=== PATIENT | female | born 1975 | race Two or more races ===

== ENCOUNTER 2024-03-26 14:34 | Emergency (ER) | payer OTHER, SELFPAY ==
--- NOTE | ~2024-03-26 | XR_ITS ---
EXAMINATION: XR LUMBOSACRAL SPINE CLINICAL INFORMATION: Increasing pain after falls. COMPARISON: None available. TECHNIQUE: Three views of the lumbosacral spine. FINDINGS: There are 5 nonrib-bearing lumbar vertebrae. There is 1.3 cm of anterolisthesis of L5 in relation to S1. There appear to be L5 pars defects. There is significant degenerative disc disease at L5-S1 characterized by marked narrowing of the intervertebral disc space and endplate sclerosis. Vertebral body heights are maintained. There is facet arthropathy at L4-L5. There are surgical clips overlying the right upper quadrant. The bowel gas pattern is nonobstructive. The sacroiliac joints are maintained. XR/XR lumbar spine 2-3V IMPRESSION: There is 1.3 cm of anterolisthesis of L5 in relation to S1. There appear to be L5 pars defects. There is significant degenerative disc disease at L5-S1.
--- NOTE | ~2024-03-26 | CT_ITS ---
EXAMINATION: CT ABDOMEN AND PELVIS WITHOUT CONTRAST CLINICAL INFORMATION: Severe lower back pain. Status post fall. COMPARISON: None available. TECHNIQUE: Multidetector volumetric imaging was performed from the superior aspect of the liver through the pubic symphysis. Sagittal and coronal reformatted images were obtained on the technologist's workstation. This CT examination was performed using dose optimization techniques as appropriate, variously including the following: *Automated exposure control *Adjustment of mA and/or kV according to patient size (this includes techniques or standardized protocols for targeted exams where dose is matched to indication/reason for exam; i.e. extremities or head) *Use of iterative reconstruction technique DLP: 862 mGy-cm FINDINGS: LUNG BASES: Small hiatal hernia. LIVER, GALLBLADDER, AND BILIARY TREE: The noncontrast liver is normal in size and contour. No biliary ductal dilatation is present. The gallbladder is surgically absent. PANCREAS: No ductal dilatation. SPLEEN: Not enlarged. ADRENAL GLANDS: No adrenal mass. KIDNEYS AND URETERS: The kidneys are symmetric in size. No hydronephrosis, hydroureter, or calculi seen. No perinephric stranding. BLADDER: Unremarkable. GASTROINTESTINAL TRACT: Status post gastric bypass. No small bowel obstruction. Appendix is within normal limits. Fecal impaction in the rectosigmoid colon. ABDOMINAL WALL: No significant hernia is appreciated. LYMPH NODES: No bulky lymphadenopathy. VASCULAR: Normal caliber abdominal aorta. PELVIC VISCERA: Unremarkable. OSSEOUS STRUCTURES: L5-S1 spondylolysis and spondylolisthesis. CT/CT abdomen pelvis wo IV con IMPRESSION: L5-S1 spondylolysis and spondylolisthesis. Marked degenerative disc disease at L5-S1.
[2024-03-26 14:36] VITALS: BP 153/97; PULSE 79; RESP 18; TEMP 36.6; O2SAT 98; BMI 36.7
--- NOTE | 2024-03-26 14:39 | ED_ITS ---
HPI - General Adult General Chief complaint: General Medical Stated complaint: back pain sent in from urgent care Time Seen by Provider: 03/26/24 15:53 Source: patient Mode of arrival: ambulatory Limitations: no limitations History of Present Illness ED Provider: Saurav GANN narrative: patient is a 49-year-old female presents to for evaluation of lower back pain. She reports severe pain over the past 3 days has been prohibiting her from sleeping. Pain is primarily to the right lower back but she feels it radiate down the right lower extremity. She admits to a history of known back issues with slipped discs and a problem L5-S1 . She reports a longstanding history with this pain, she reports a few years ago she was residing in [place] in the only thing that was helping her pain at that time was getting intermittent injections to the spine as well as tramadol. She reports upon moving here she was no longer able to get the tramadol prescribed to her. She is following with Leo Stevens at [facility] and has been undergoing physical therapy, she unfortunately reports that he is unable to take her on as a pain management patient as his client load is too high. She states approximately 1 month ago she was being evaluated at [facility], and upon being discharged when leaving the wheelchair she was sitting and got caught on the threshold of the floor resulting in her falling out of the chair, the wheelchair falling onto her and subsequently her [employer] falling on top of her. She states that she had a hematoma over her lower back at that time but states that no additional images were obtained after her injury despite being brought back into the emergency department. She states that the bruising increased over the following few days who was present over the midline of her lumbar spine and off to the right. Pain has been progressively worsening since this fall. Denies fevers, chills, burning with micturition, urinary frequency/urgency/hesitancy, bladder or bowel dysfunction, numbness or tingling of the perineum. Denies any recent surgical procedures, any known immune compromising conditions, personal history of cancer, or IV drug usage. Related Data Previous Rx's ?Medication ?Instructions ?Recorded tramadol 50 mg tablet 50 mg PO Q8H PRN pain #10 tabs 03/26/24 Allergies Allergy/AdvReac Type Severity Reaction Status Date / Time cyclobenzaprine Allergy Agitated Verified 03/26/24 14:45 [From Flexeril] ibuprofen Allergy Rash Verified 03/26/24 14:45 pork derived (porcine) Allergy Unknown Verified 03/26/24 14:45 Review of Systems Review of Systems: Yes all other systems are reviewed and are negative [facility] Past Medical History Attestation statement: The following information was validated with the patient. Source: old records reviewed Social History Social History Advance Directives: No Advance Directives Information Provided: No Do you have a plan to hurt others: No Plan Physical Exam ED Vital Signs: Vital Signs - 24 hr 03/26/24 14:36 Temperature 97.9 F Pulse Rate 79 Respiratory Rate 18 Blood Pressure 153/97 H Pulse Oximetry 98 Oxygen Delivery Method Room Air BMI result Body Mass Index 36.7 Appearance: Alert.?Oriented to person, place and time. No acute distress.?Normal affect. Eyes: Pupils equal, round and reactive to light.? ENT: Pharynx normal.?? Neck: Normal inspection.? Neck supple.?? CVS: Heart sounds normal. Normal heart rate and rhythm.? Pulses normal; bilateral radial pulses 2+, bilateral posterior tibial/dorsalis pedis pulses 2+.? Respiratory: No respiratory distress.? Lung sounds clear to auscultation bilaterally?? Abdomen: Soft and non-tender. Normoactive bowel sounds. No pulsatile mass.?? Skin: Skin warm and dry.? Normal skin color.? Normal skin turgor.?? Extremities: No lower extremity edema.? No calf ttp? Back: Moderate rightparaspinal muscular tenderness from lumbar region to coccyx. No midline spinal tenderness, step-off's, or deformity. Full ROM intact in bilateral lower extremities. Straight leg test positive on right; Straight leg test positive on left. No rashes, lesions, areas of induration or fluctuance, or signs of infection noted., Neuro: Moves all extremities spontaneously. 5/5 strength in hip extension/fl exion, abduction, adduction. Sensation to light touch intact bilaterally. Patellar and Achilles reflex 2+ bilaterally. No ataxia, gait normal and steady.. No focal neuro deficits. Course Course Course Narrative: RME performed by Sabiha Reyes PA-C. Patient is a 49 year old assigned female at presenting to the emergency department with low back pain. Patient states she has a lot of chronic pain issues and her low back is currently bothering her the most. Detailed physical exam and review of systems are deferred to the outreach clinician. Patient placed back in the waiting room pending room availability. Medications Administered Discontinued Medications Generic Name Dose Route Start Last Admin Trade Name Usha PRN Reason Stop Dose Admin Tramadol HCl 50 mg 03/26/24 17:04 03/26/24 17:18 Tramadol Hcl 50 Mg Tablet PO 03/26/24 17:05 50 mg ONCE ONE Administration Medical Decision Making Medical Decision Making MDM Narrative: Patient is a 49-year-old female with acute on chronic lower back pain as per HPI; she has known degenerative disc disease of L5-S1. CT for abdomen pelvis was obtained today and is without additional acute pathology to suggest a cause for her worsening pain. On review of ADDICTION MEDICINE PHYSICIAN she most recently received a prescription oxycodone 7 day course from her prison psychiatrist. We had an at length discussion about further follow-up for her chronic pain, she was provided with contact information for the neuro spinal surgeon; Dr. Jackson associated with [facility] in addition provided with contact information for the pain management clinic associated with our hospital. She verbalizes understanding that she will contact her insurance company to assure whether providers are in network and she will make calls accordingly and seek referral from her primary care doctor and/or prison psychiatrist if so required by them. She received tramadol in the emergency department with good effect. On neurological exam there are no deficits. Not consistent with spinal fracture, spinal infection, epidural abscess, AAA, epidural abscess, or dissection. No high risk past medical history including incontinence, fever, immunosuppression, recent surgery or lumbar puncture, coagulopathy, significant trauma, recent unintentional weight loss, pulsatile mass, history of cancer, history of TB, history of IV drug use. Not consistent with ectopic , pyelonephritis, urinary tract infection, renal calculi, pelvic infection, appendicitis, diverticulitis. On exam no concern for cauda equina syndrome. Discussed with patient plan of care for discharge home, will send a short course of tramadol to her pharmacy as this has been reveal any alleviating factors for her, but we discussed the inability to prescribe long-term/continuous told substances from the emergency room setting, and patient agreed with plan. Differential Diagnosis Differential Diagnoses: The differential diagnosis associated with the presentation includes ( see narrative above) Admission/Observation Consideration of admission/observation: Escalation of care including admission/observation considered ( see narrative above) Radiology Impression Discussion of test interpretation with radiology: I have reviewed the radiologist's reading. Radiologist Impression: XR/XR lumbar spine 2-3V IMPRESSION: There is 1.3 cm of anterolisthesis of L5 in relation to S1. There appear to be L5 pars defects. There is significant degenerative disc disease at L5-S1. CT/CT abdomen pelvis wo IV con IMPRESSION: L5-S1 spondylolysis and spondylolisthesis. Marked degenerative disc disease at L5-S1. Independent Historian Clinical information obtained from an independent historian. History obtained from or confirmed by: Other ( dentures lab technician) External Record Review External record reviewed: Other ( ADDICTION MEDICINE PHYSICIAN) Tests considered The following testing was considered but not selected: no indication for emergent MRI, see narrative above Prescription Management I considered prescription management with: Pain Medication Discharge Plan Discharge Clinical Impression: Lumbar spondylosis, Degenerative disc disease, lumbar Patient Disposition: Home, Self-Care Instructions: Degenerative Disc Disease (ED), Lower Back Exercises (ED) Prescriptions: New tramadol 50 mg tablet 50 mg PO Q8H PRN (Reason: pain) Qty: 10 0RF Referrals: [facility] Pain Management [Provider Group] Maria Fernanda Padron PA-C [Primary Care Provider] - Jordan Gonzalez MD, PhD [Physician] - Print Language: Chinese
[2024-03-26] MEDS: traMADoL HCL 50 MG TABLET PO (17:18)
--- NOTE | 2024-03-26 18:05 | PC.NURSE ---
Evaluated by provider, cleared for dc home.
[2024-03-26 18:11] VITALS: BP 154/58; PULSE 51; RESP 18; TEMP 36.6; O2SAT 100
[2024-03-26 18:17] VITALS: BP 154/58; PULSE 51; RESP 18; TEMP 36.6; O2SAT 100
== END 2024-03-26 18:18 | disposition home or self-care (01) ==
PROVIDERS: Emergency Provider Emergency Medicine; PCP Physician Assistant Medical
DX: M47.816 Spondylosis without myelopathy or radiculopathy, lumbar region (principal); M51.36 Other intervertebral disc degeneration, lumbar region
CPT/HCPCS: 72100; 74176; 99283

== ENCOUNTER 2024-04-08 13:21 | Outpatient (AMB) | payer OTHER, SELFPAY ==
--- NOTE | 2024-04-08 13:57 | A.SPINEOV_ITS ---
Intake Visit Reasons: Low back pain Intake Note: Ms. Olivier, 49 y/o female, here today c/o low back and neck pain. Analysis Internship Required: No Allergies cyclobenzaprine [From Flexeril] Allergy (Verified 03/26/24 14:45) Agitated ibuprofen Allergy (Verified 03/26/24 14:45) Rash pork derived (porcine) Allergy (Verified 03/26/24 14:45) Unknown Assessment & Plan Assessment & Plan (1) Back pain: Code(s): M54.9 - Dorsalgia, unspecified Category: Medical Plan Dear Dr Padron, I saw Mrs Olivier in follow-up from the emergency room. As you know, she is a 49-year-old HIV-positive patient, who was in the [facility] emergency room complaining of back pain and right leg pain and underwent a CT scan showing severe disc collapse at L5-S1 with bilateral pars defects and foraminal narrowing. She has had chronic back issues for years. She used to live in [place] and was managed they are relatively well with injections and therapy. She has been seeing Dr. Stevens here in [place] and he has been doing injections for her but has not been doing medications with her. The injections have not had the long-lasting effect that the ones that were done in [place] seemed to have. She tells me that the symptoms have been getting progressively worse. She her days are filled with pain and she is also unable to sleep. The worst position is standing or walking. She has been using a walker to help her with mobilizing. The pain is located in the center of her back and radiates into her right buttock can go down to her posterior thigh. Right now she is taking heavy doses of Tylenol. She can not take ibuprofen because it causes some type of hypervascular response in her extremities. She has not taking any narcotics. She will take diclofenac gel which was prescribed to her. She had a CT scan in the emergency room in his here in follow-up today. PMH: HIV-positive, she tells me she got this from a tattoo and it has been managed very well with the medication called Triumeq. Her counts are undetectable. 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 History of gastric bypass in 1997, , cholecystectomy, breast reduction and excess skin removal after her weight loss surgery. Also history of anxiety and PTSD. Social hx: She has not smoke cigarettes but she does smoke marijuana every evening. No alcohol to report. Medications: Oxcarbazepine, trazodone, pantoprazole, loperamide, Klonopin, albuterol, biotin, multivitamin, Triumeq, diclofenac gel and Tylenol Allergies: Ibuprofen and Flexeril Physical exam: She is awake alert oriented no acute distress, she is uncomfortable with standing, strength and reflexes grossly intact. Imaging review: There is an abdominal CT done at [facility] showing bilateral pars defects at L5 with bilateral neuroforaminal stenosis and a grade 1-2 spondylolisthesis. Impression: 49-year-old HIV-positive female chronic low back pain and right lower extremity radiculopathy in the setting of pars defects, at L5 with spondylolisthesis grade 1-2 in bilateral neuroforaminal stenosis. The is someone who typically would be a good candidate for surgery. I would need an MRI however to clarify her anatomical structures better. The surgery of choice would typically be an anterior lumbar interbody fusion, but with her history of bypass which I suspect was a Marc-en-Y bypass, I am not sure if she would qualify. I would have to run it by our general surgeon who does are abdominal exposure to see if this would rule her out for that. Once I have her MRI images I will review them with him. The other alternative obviously would be a transforaminal lumbar interbody or a trans Kambin. I will see her back after the MRI is completed. Right now I do not get the sense that she is ready to undergo surgery, but at least we can see her back and have a more detailed discussion once we have the imaging completed. Thank you for allowing us to care for your patient. The total time spent with this visit with this patient was 45 minutes reviewing history, physical exam, lumbar CT imaging review, and implementation of armando atment plan or further diagnostic testing Onofre Gonzalez MD,PhD [facility] Orders: Orders MR lumbar spine wo con Today M54.9 - Dorsalgia, unspecified Coding Level of Care Code New Pt Level 4 (60862) Diagnoses Back pain M54.9
== END 2024-04-08 14:29 | disposition home or self-care (01) ==
PROVIDERS: PCP Physician Assistant Medical; Visit Provider Physician Assistant
DX: M54.9 Dorsalgia, unspecified (principal)
CPT/HCPCS: 99204

== ENCOUNTER → 2024-04-08 13:21 | Outpatient (BNVA) | payer OTHER, SELFPAY | PROVIDERS: PCP Physician Assistant Medical; Visit Provider Physician Assistant | DX: M54.9 Dorsalgia, unspecified (principal) | CPT/HCPCS: 99202 ==

== ENCOUNTER 2024-06-09 10:27 | Outpatient (REF) | payer OTHER, SELFPAY ==
--- NOTE | ~2024-06-09 | MR_ITS ---
EXAMINATION: MR LUMBAR SPINE WITHOUT CONTRAST CLINICAL INFORMATION: Back pain, right leg pain COMPARISON: CT abdomen and pelvis 03/26/2024 TECHNIQUE: MRI of the lumbar spine was obtained using routine sequences without contrast. FINDINGS: Grade 2 anterolisthesis of L5 on S1 measuring approximately 1.5 cm. Associated L5 pars defects are better demonstrated on preceding CT of the abdomen and pelvis. No suspicious marrow signal or focal osseous lesion. Mixed type I and type II endplate marrow signal changes at L5-S1. There is chronic appearing height loss involving the posterior aspect of the L5 vertebral body. Severe disc signal and height loss at L5-S1 and partial disc signal loss with mild posterior height loss at L4-L5 . The conus medullaris terminates at the level of L1. The distal spinal cord is normal in appearance. The cauda equina nerve roots appear normal. No significant abnormalities of the paraspinal musculature. Limited evaluation of the intra-abdominal structures without significant abnormalities. The abdominal aorta is of normal contour and caliber. SPINAL LEVELS: L1-L2: No significant spinal canal or neuroforaminal narrowing. L2-L3: Shallow disc bulge. Mild bilateral neural foraminal narrowing. No significant central spinal canal stenosis. L3-L4: Shallow disc bulge mild facet arthropathy. Mild bilateral neural foraminal narrowing. No significant central spinal canal stenosis. L4-L5: Shallow disc bulge with superimposed central protrusion with annular fissure. Facet arthropathy. No significant central spinal canal stenosis. Mild bilateral neural foraminal narrowing. L5-S1: Anterolisthesis with posterior disc and covering. Facet arthropathy. No significant central spinal canal stenosis. Severe bilateral neuroforaminal narrowing with impingement of the exiting L5 nerve roots. MR/MR lumbar spine wo con IMPRESSION: 1. Grade 2 anterolisthesis of L5 on S1 with associated L5 pars defects and severe bilateral neural foraminal narrowing with impingement of the exiting L5 nerve roots. 2. Additional mild degenerative changes of the lumbar spine as described above. Electronically signed by: Blane Casanova MD 06/23/2024 06:36 PM EDT RP
== END 2024-06-09 10:28 | disposition home or self-care (01) ==
LOC: HO.MRI 10:27
PROVIDERS: PCP Internal Medicine; Visit Provider Physician Assistant
DX: M54.9 Dorsalgia, unspecified (principal)
CPT/HCPCS: 72148

== ENCOUNTER 2025-07-29 14:21 | Inpatient (IN) | payer OTHER, SELFPAY ==
--- NOTE | ~2025-07-29 | CT_ITS ---
CLINICAL HISTORY: US with abscess of umbilicus CT abdomen and pelvis with contrast Comparison: US - US ABDOMEN LIMITED - 07/29/25 17:[address]/FL/SR - CT ABDOMEN PELVIS WITHOUT IV CONTRAST - 03/26/24 16:08 EDT Findings: The lung bases are clear. Unremarkable abdominal organs. Prior cholecystectomy. No bowel obstruction, pneumoperitoneum, or pneumatosis. There is infiltration of the soft tissues within the retro umbilical region associated with a small pocket of fluid. Mild edema of adjacent subcutaneous tissues in relative thickening of the overlying skin surface is noted. A pocket of fluid was also noted on the prior CT, however the associated inflammation is new. No umbilical hernia. Status post gastric bypass. No colitis or bowel obstruction. Pelvic contents unremarkable. Normal appendix. There are chronic bilateral pars defects at L5 associated with grade 2 spondylolisthesis without change. No acute fracture. IMPRESSION: There is an inflammatory process within the retro umbilical region likely associated with a small abscess as noted on recent ultrasound. This document has been electronically signed by: Cathryn Sosa MD on 07/29/2025 19:33:44
--- NOTE | ~2025-07-29 | US_ITS ---
CLINICAL HISTORY: soft tissue of umbilicus; UMBILICAL INFECTION ?ABSCESS --- Additional Notes or Special Instructions: investigate if fluid collection vs only cellulitis of navel Ultrasound umbilical soft tissues Comparison: 03/26/2024 Findings: Ultrasound evaluation was performed of the soft tissues in the umbilical region. Evaluation is mildly limited by artifact. There is a 3.6 x 1.5 x 2.3 cm complex fluid collection within the retro umbilical region. No obvious hernia. Adjacent soft tissues are unremarkable. Impression: 1. 3.6 cm complex fluid collection within the retro umbilical region, suspicious for an abscess. This document has been electronically signed by: Cathryn Sosa MD on 07/29/2025 17:57:52
[2025-07-29 14:29] VITALS: BP 114/79; PULSE 75; RESP 16; TEMP 36.3; O2SAT 99; BMI 35.0
--- NOTE | 2025-07-29 14:29 | ED_ITS ---
HPI - General Adult General Chief complaint: Skin/Abscess/Foreign Body Stated complaint: Belly Button Infection Sent by Time Seen by Provider: 07/29/25 16:33 Source: patient, EMS, RN notes reviewed and old records reviewed Mode of arrival: ambulatory Limitations: no limitations History of Present Illness ED Provider: Dania Lujan PA-C HPI narrative: Patient reports to the emergency department today for evaluation of soft tissue skin concern. Patient's past medical history significant for gastric sleeve surgery along with Plastic surgery to remove her skin folds of both her upper arms as well as her pannus this was done in 1997 and 2000 respectively via [facility]. Part of her pannus being reconstructed included an artificial knee able being made. Patient self reports OCD as far as skin cleansed and goes though she tries to avoid scrubbing certain areas including her umbilicus. This past Friday she decided to clean her nevus with a Q-tip O2 herself really hard and felt instant pain there was no blood on the Q-tip but the next day on Friday 3 days ago she started to notice some redness and discharge from the area facet time it has increased redness and now has pain at that site. She also states that is now an odor there. This has not happened to her before. She is patient is endorsing just feeling like something is off now. She has no trouble moving her bowels and does not endorse any fevers or chills. No other trauma. Number shave infections in this area in the past. She went to today and they referred her here. She rec'd RME and had area of infection outlined with wound marker. Related Data Previous Rx's ?Medication ?Instructions ?Recorded tramadol 50 mg tablet 50 mg PO Q8H PRN pain #10 ta bs 03/26/24 Allergies Allergy/AdvReac Type Severity Reaction Status Date / Time cyclobenzaprine (From Allergy Agitated Verified 07/29/25 14:34 Flexeril) ibuprofen Allergy Rash Verified 07/29/25 14:34 pork derived (porcine) Allergy Unknown Verified 07/29/25 14:34 Review of Systems 2 Review of Systems: Yes all other systems are reviewed and are negative PMFSH Past Medical History Attestation statement: The following information was validated with the patient. Source: old records reviewed and nursing notes reviewed Medical History (Updated 07/29/25 @ 20:27 by Dania Lujan PA-C) Cellulitis Anxiety HIV (human immunodeficiency virus infection) Social History Social History Smoked in Last 30 Days: Yes Use of substances other than those prescribed or required for medical reasons: Yes Substance Use Type: Marijuana Advance Directives: No Advance Directives Information Provided: No Do you have a plan to hurt others: No Plan Patient : No Physical Exam ED Exam Exam: erythema as above, flat poorly demarcated borders, firm induration 12 oclock position just above artificial navel of approx cm, ttp, no fluctuance, no red streaking, no hole in umbilicus, foul odor present, pseudomonal like, no gaurding General: Appears in no acute distress, appears well nourished body habitus is obese, appears stated age. No septic or ill-appearing. Vitals reviewed normal, PMH/Social and Surgical hx reviewed including allergies and current medications. Head: Normocephalic, no obvious trauma or skin lesions noted. Eyes: EOMI ENMT: moist oral mucosa Neck: trachea midline Cardiovascular: peripheral perfusion normal, Regular heart rate, regular rhythm Respiratory: no respiratory distress Abdomen: as above, obese Extremities: warm and moving without difficulty Psych: Cooperative and anxious Neuro: Alert and oriented. Vital Signs: Vital Signs - 24 hr 07/29/25 14:29 07/29/25 16:40 Temperature 97.3 F 98.3 F Pulse Rate 75 81 Respiratory Rate 16 12 Blood Pressure 114/79 102/51 L Pulse Oximetry 99 99 Oxygen Delivery Method Room Air Room Air BMI result Body Mass Index 35.0 Course Course Course Narrative: This is a Rapid Medical Examination (RME) performed by Valerie Camarena PA-C in triage. Full HPI, ROS, assessment and treatment plan per primary provider in the Main ED. Hx: 50 yo F hx HIV w/ undetectable viral load here for eval of umbilical infection x days. sent from w/ concerns of abscess to the area. draining purulent discharge Plan: labs, will defer imaging. Medications Administered Generic Name Dose Route Start Last Admin Trade Name Freq PRN Reason Stop Dose Admin Ceftriaxone Sodium 1 gm/ 50 mls @ 100 mls/hr 07/29/25 19:54 07/29/25 20:19 Sodium Chloride IV 07/29/25 20:23 100 mls/hr ONCE ONE Administration Discontinued Medications Generic Name Dose Route Start Last Admin Trade Name Usha PRN Reason Stop Dose Admin Iohexol 100 ml 07/29/25 19:01 07/29/25 19:01 Iohexol 350 Mg/Ml 100 Ml Infus..Btl IV 07/29/25 19:02 65 ml ONCE ONE Administration Medical Decision Making Medical Decision Making [facility] Narrative: 50 y/o F past medical history significant for obesity and HIV presenting to the emergency department today with concerns of umbilical infection. She received an RME in triage with labs ordered. She is afebrile and nontoxic or septic appearing history and physical as above. Labs do not demonstrate any leukocytosis or metabolic dysfunction. Given the purulent drainage on exam with foul odor had concerns for potential Pseudomonas a wound culture was taken. It is a poorly demarcated which would be concerning for cellulitis however given the drainage and did order a soft tissue ultrasound which showed potential abscess at this point surgery was consulted with Dr. Sadler who requested a CT of the abdomen and pelvis which did not support the small abscess but small inflammatory process of the umbilicus. Dr. Sadler then saw patient at bedside he did not feel this was surgical but did recommend IV antibiotics and admitting patient to medicine for him to follow and change dressing tomorrow. To cover for Pseudomonas that ordered IV Flagyl insert cover for staph and ordered ceftriaxone. Patient was admitted to medicine. Differential Diagnosis Differential Diagnoses: The differential diagnosis associated with the presentation includes cellulitis abscess foreign body with infection Admission/Observation Consideration of admission/observation: Escalation of care including admission/observation considered Consult Healthcare Provider Management of the patient was discussed with: Hospitalist and Long Chain Dyeing Machine Operator Lab Data [facility] Lab Attestation statement: I reviewed the patient's lab results. 07/29/25 16:09 07/29/25 16:09 Labs: Lab Results 07/29/25 Range/Units 16:09 WBC 8.7 (4.8-10.8) X10*3/uL RBC 4.15 L (4.20-5.50) X10*6/uL Hgb 13.9 (12.0-16.0) g/dl Hct 41.0 (37.0-47.0) % MCV 98.8 H (80.0-98.0) fL MCH 33.5 H (27.0-33.0) pg MCHC 33.9 (31.0-35.0) g/dl RDW 11.4 (11.0-16.0) % Plt Count 343 (160-400) X10*3/uL MPV 9.9 (9.4-12.3) fL Immature Gran % (Auto) 0.3 (0.0-0.4) % Neut % (Auto) 49.6 (45-73) % Lymph % (Auto) 37.8 (20-40) % [place] % (Auto) 10.8 (2-11) % Eos % (Auto) 0.8 (0-4) % Baso % (Auto) 0.7 (0-2) % Lymph # (Auto) 3.3 (1.2-4.9) X10*3/uL [place] # (Auto) 0.9 (0.1-1.2) X10*3/uL Eos # (Auto) 0.1 (0.0-0.4) X10*3/uL Baso # (Auto) 0.1 (0.0-0.2) X10*3/uL Abs Immat Gran (auto) 0.03 (0.00-0.03) X10*3/uL Absolute Neuts (auto) 4.3 (2.0-8.3) x10*3/uL Absolute Nucleated RBC 0.000 (0.0-0.012) X10*3/uL Nucleated RBC % (auto) 0.0 (0.0-0.2) /100WBC ESR 22 H (0-20) MM/HR Sodium 138 (135-145) mmol/L Potassium 4.7 (3.3-5.1) mmol/L Chloride 103 (96-108) mmol/L Carbon Dioxide 26 (22-29) mmol/L Anion Gap 14 (12-20) BUN 7 L (9-16) mg/dL Creatinine 0.64 (0.5-1.4) mg/dL Estim Creat Clear Calc 123.0 Estimated GFR > 60 Random Glucose 94 (60-115) mg/dL Calcium 9.6 (8.4-10.2) mg/dL Magnesium 2.1 (1.6-2.6) mg/dL Total Bilirubin 0.4 (0.0-1.0) mg/dL AST 38 H (5-31) U/L ALT 21 (0-31) U/L Alkaline Phosphatase 93 (39-117) U/L C-Reactive Protein 6.90 H (< or = 0.50) mg/dL Total Protein 7.7 (6.5-8.0) g/dL Albumin 4.6 (3.5-5.0) g/dL Independent Interpretation I performed an independent interpretation of an: Ultrasound and CT Scan Interpretation: no abscess, soft tissue infection Radiology Impression Discussion of test interpretation with radiology: I have reviewed the radiologist's reading. Prescription Management I considered prescription management with: Antibiotic Chronic Conditions Patient?s care impacted by: Other Social Determinants Patient?s care significantly limited by Social Determinants of Health including: Other Social Determinant of Health Discharge Plan Discharge Clinical Impression: Abdominal wall cellulitis Patient Disposition: Admitted As Inpatient Print Language: Georgian
[2025-07-29 16:16] LABS: MANUAL DIFF FLAG NO
[2025-07-29 16:17] LABS: Hematocrit 41.0 % (37.0-47.0); Hemoglobin 13.9 g/dl (12.0-16.0); Imm Gran Abs Auto 0.03 X10*3/uL (0.00-0.03); Imm Gran Pct Auto 0.3 % (0.0-0.4); Lymphocytes Absolute Auto 3.3 X10*3/uL (1.2-4.9); Mean Corpuscular HGB Conc 33.9 g/dl (31.0-35.0); Mean Corpuscular Hemoglobin 33.5 pg (27.0-33.0); Mean Corpuscular Volume 98.8 fL (80.0-98.0); NRBC Abs Auto 0.000 X10*3/uL (0.0-0.012); NRBC Pct Auto 0.0 /100WBC (0.0-0.2); Platelet Count 343 X10*3/uL (160-400); Red Blood Count 4.15 X10*6/uL (4.20-5.50); White Blood Count 8.7 X10*3/uL (4.8-10.8)
[2025-07-29 16:31] LABS: Alanine Aminotransferase 21 U/L (0-31); Albumin Level 4.6 g/dL (3.5-5.0); Alkaline Phosphatase 93 U/L (39-117); Anion Gap 14 (12-20); Aspartate Amino Transferase 38 U/L (5-31); Blood Urea Nitrogen 7 mg/dL (9-16); Calcium 9.6 mg/dL (8.4-10.2); Carbon Dioxide 26 mmol/L (22-29); Chloride 103 mmol/L (96-108); Creatinine Clr Calc Pharmacy 123.0; Estimated Glomerular Filt Rate > 60; Magnesium 2.1 mg/dL (1.6-2.6); Potassium 4.7 mmol/L (3.3-5.1); Sodium 138 mmol/L (135-145); Total Protein 7.7 g/dL (6.5-8.0)
[2025-07-29 16:40] VITALS: BP 102/51; PULSE 81; RESP 12; TEMP 36.8; O2SAT 99
--- OUTSIDE RECORDS SUMMARY | 2025-07-29 16:53 | XMS_ITS | Clinical Summary ---
Author Organization [facility] Address [address] [place] [address] Care Team Providers Care Senior Quality Control Technician Name Role Phone Tyshawn Nathan MD Primary Care Provider [phone] Allergies Active Allergy Reactions Criticality Noted Date Comments Cyclobenzaprine Other (See Comments) Medium 08/13/2021 Opposite effect - lockingup Ibuprofen Other (See Comments) Medium 08/13/2021 Bruise all over Medications Medication Sig Dispensed Refills Start Date End Date Status traZODone (DESYREL) 150 MG tablet Take 150 mg by mouth every night at bedtime. 0 Active omeprazole (PriLOSEC) 20 MG capsule Take 20 mg by mouth daily. 0 Active OXcarbazepine (TRILEPTAL) 300 MG tablet Take 300 mg by mouth 2 (two) times a day. 1 tab ppo qam and 2 tabs po qhs 0 Active valACYclovir (VALTREX) 500 MG tablet Take 500 mg by mouth daily. 0 Active abacavir-dolutegravir- lamivud (TRIUMEQ) 600-50-300 MG per tablet Take 1 tablet by mouth daily. 0 Active albuterol 108 (90 Base) MCG/ACT inhaler Inhale 2 puffs into the lungs every 6 (six) hours as needed for wheezing. 0 Active Biotin 97854 MCG TABS Take 5,000 mcg by mouth daily. 0 Active Multiple Vitamins-Minerals (MULTI ADULT GUMMIES PO) Take by mouth. 0 Active vitamin C (ASCORBIC ACID) 250 MG tablet Take 250 mg by mouth daily. 0 Active Family History Medical History Relation Name Comments Diabetes Father Drug abuse Father Hyperlipidemia Father Seizures Father No Sig Med Hx Mother Relation Name Status Comments Father Mother Alive Social History Tobacco Use Types Packs/Day Years Used Date Smoking Tobacco: Never Smokeless Tobacco: Never Alcohol Use Standard Drinks/Week Comments Not Currently 0 (1 standard drink = 0.6 oz pur e alcohol) Sex and Gender Information Value Date Recorded Sex Assigned at Not on file Gender Identity Not on file Sexual Orientation Not on file Job Start Date Occupation Industry Not on file Not on file Not on file Last Filed Vital Signs Vital Sign Reading Time Taken Comments Blood Pressure 130/83 08/17/2021 10:29 AM EST Pulse 64 08/17/2021 10:29 AM EST Temperature 36.3 C (97.3 F) 08/17/2021 10:29 AM EST Respiratory Rate - - Oxygen Saturation 100% 08/17/2021 10:29 AM EST Inhaled Oxygen Concentration - - Weight 108 kg (238 lb) 08/13/2021 10:32 AM EST Height 167.6 cm (5' 6 ) 08/13/2021 10:32 AM EST Body Mass Index 38.41 08/13/2021 10:32 AM EST Plan of Treatment Health Maintenance Due Date Last Done Comments Hepatitis B Vaccines (1 of 3 - 3-dose series) 1974 Hepatitis C Screening 1974 COVID-19 Vaccine (#1) 1974 Depression Screening 1986 Preventative Health Evaluation 02/02/1992 Cervical Cancer Screening (P ap Smear) 1995 Colon Cancer Screening (Colonoscopy) 2019 DTap / Tdap / Td (2 - Td or Tdap) 03/16/2019 009 Breast Cancer Screening (Mammogram) 02/02/2024 Shingrix-Zoster Vaccine (1 of 2) 02/02/2024 Influenza Vaccine (#1) 2025 Pneumococcal Vaccine Aged Out No long er eligible based on patient's age to complete this topic RSV Ped < 20 months Aged Out No longe r eligible based on patient's age to complete this topic Care Teams Senior Quality Control Technician Relationship Specialty Start Date End Date Tyshawn Nathan MD [address] [place] [address] PCP - General Internal Medicine 07/27/21
--- OUTSIDE RECORDS SUMMARY | 2025-07-29 16:53 | XMS_ITS | Patient Health Record ---
Author Organization [facility] Address [address] [place] [id number] Care Team Providers Care Cellular Plastics Cutter Name Role Phone Handy Wright Unavailable [phone] Reason For Referral No Information Medications Medication SIG (Take, Route, Frequency, Duration) Notes Start Date End Date Status Multivitamin & Mineral Orally Active Pro-biotic Blend 5 mg Orally *please review for potential update for e-prescription and drug interaction check* Not-Taking traZODone HCl 150 MG 1 tablet at bedtime as needed Orally Once a day Active Vitamin C Orally Active Biotin 5000 5 MG 1 capsule Orally three times a week Active Valtrex 1 GM 1 tablet Orally every 24 hrs Not-Taking Omeprazole 20 MG 1 capsule Orally Once a day Active Mult-Vitamin/Fluori de 0.5 MG 1 tablet Orally Once a day *please review for potential update for e-prescription and drug interaction check* Active Albuterol *please review f or potential update for e-prescription and drug interaction check* Active Problems Problem Type SNOMED Code ICD Code Onset Dates Problem Status W/U Status Risk Notes Problem Morbid obesity (disorder) (374783678) Morbid (severe) obesity due to excess calories (E66.01) Active confirmed Problem Obstructive sleep apnea syndrome (disorder) (22964112) Obstructive sleep apnea (adult) (pediatric) (G47.33) Active confirmed Problem Extreme obesity with alveolar hypoventilation (602091007) Morbid (severe) obesity with alveolar hypoventilation (E66.2) Active confirmed Problem 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) Active confirmed Problem History of bariatric surgical procedure (773833372) Bariatric surgery status (Z98.84) Active confirmed Plan Of Treatment Pending Test Test Name Order Date Vitamin B12 and Folate 03/14/2015 Phosphorus, Serum 03/14/2015 Iron and TIBC 03/14/2015 Iron and TIBC 01/31/2016 Iron and TIBC 04/05/2016 Hemoglobin A1c 04/05/2016 Hemoglobin A1c 01/31/2016 Hemoglobin A1c 03/14/2015 Vitamin B12 01/31/2016 Vitamin B12 04/05/2016 Magnesium, Serum 03/14/2015 Folate (Folic Acid), Serum 04/05/2016 Folate (Folic Acid), Serum 01/31/2016 Urinalysis, Routine 03/14/2015 Test, Urine 03/14/2015 Dehydroepiandrosterone (DHEA) 03/14/2015 TSH 03/14/2015 Estrogens, Total 03/14/2015 Ferritin, Serum 03/14/2015 Ferritin, Serum 01/31/2016 Ferritin, Serum 04/05/2016 CBC With Differential/Platelet 6 CBC With Differential/Platelet 6 CBC With Differential/Platelet 5 ABO Grouping and Rho(D) Typing 5 C-Reactive Protein, Quant 03/14/2015 PT AND PTT 03/14/2015 Testosterone,Free and Total 03/14/2015 Leptin, Serum 03/14/2015 Lipid Panel 03/14/2015 Lipid Panel 01/31/2016 Lipid Panel 04/05/2016 Comp. Metabolic Panel (14) 03/14/2015 Chem-Comprehensive 04/05/2016 Chem-Comprehensive 01/31/2016 ghrelin 03/14/2015 Upper gastrointestinal (UGI) series 02/27 ESOPHAGOGASTRODUODENOSCOPY 03/14/2015 Insurance Providers Payer Name Payer Address Payer Phone Subscriber Number Group Number Insured Name Patient Relationship to Insured Coverage Start Date Coverage End Date [employer] [place] [employer] [address] [address] [place] [phone] [id number] 1 Of Nataliya Olivier Self - patient is the insured 6 Medical (General) History Medical History History ICD Code Morbid obesity Gastro- gastric fistula Surgical History Surgery Date(Month/Year) Gastric bypass open 07/23/1999 Lap revision of gastric pouc h, EGD, Lap lysis of adhesions and resection of gastrogastric fistula 11/2015 Hospitalization History Reason Date(Month/Year) Had Surgery- Gastric bypass 07/23/99 Toxemia of
--- OUTSIDE RECORDS SUMMARY | 2025-07-29 16:53 | XMS_ITS | Data Portability ---
Author Organization [place] [facility], [facility] Address [address] [place] [id number] Care Team Providers Care Cashier Credit Name Role Phone HIM CCA Referring Provider Assessment No assessment recorded. Plan of Treatment Reminders Order Date Submit Date Provider Last Modified By Organization Details Last Modified Time Details Appointments None recorded. Lab rapid flu (A+B) 2023 024 [facility], [address] [place] [address], [id number] 4 18:58:10 rapid strep group A, throat 2023 024 [facility], [address] [place] [address], [id number] 4 18:58:11 rapid SARS CoV 2 Ag, QL IA, respiratory specimen 2023 024 [facility], [address] [place] [address], [id number] 4 18:58:09 rapid strep group A, throat 2022 023 [facility], [address] [place] [address], [id number] 3 16:45:14 rapid flu (A+B) 2022 023 [facility], [address] [place] [address], [phone] 3 16:45:14 rapid SARS CoV 2 Ag, QL IA, respiratory specimen 2022 023 [facility], [address] [place] [address], [id number] 3 16:45:14 Referral None recorded. Procedures None recorded. Surgeries None recorded. Imaging None recorded. Medication Orders Tessalon Perles 100 mg capsule 2022 023 pjansson Not available 3 16:45:14 Patient TargetsNo targets recorded. Patient InstructionsNo instructions recorded. Reason for Referral None Reported. Results Created Date Observation Date Name Description Value Unit Range Abnormal Flag Note LastModifiedBy Organization Detail LastModifiedTime 03/27/20 23 03/27/2023 rapid SARS CoV 2 Ag, QL IA, respi rator y speci men rapid SARS CoV 2 Ag, QL IA, respiratory specimen negati ve Not Available [facility] ed [address] [place] [address], [address] [place] [address] 03/27/2023 16:44:04 03/27/20 23 03/27/2023 rapid flu (A+B) Flu negati ve Not Available [address], [address] [place] [address] 03/27/2023 16:44:02 03/27/20 23 03/27/2023 rapid strep group A, throa t Strep negati ve Not Available [address], [address] [place] [address] 03/27/2023 16:43:59 01/11/20 24 01/11/2024 rapid SARS CoV 2 Ag, QL IA, respi rator y speci men rapid SARS CoV 2 Ag, QL IA, respiratory specimen negati ve Not Available [address], [address] [place] [address] 01/11/2024 18:57:54 01/11/20 24 01/11/2024 rapid strep group A, throa t Strep negati ve Not Available [address], [phone] 01/11/2024 18:57:53 01/11/20 24 01/11/2024 rapid flu (A+B) Flu negati ve Not Available [address], [address] [place] [address] 01/11/2024 18:57:52 Result Notes None recorded. Medical Equipment None Reported. Allergies Allergen ID Allergen Name Allergen Category Reaction Reaction Severity Criticality Documentation Date Start Date Code Code System Note Provider Name and Address Organization Details Recorded Time 8850 ibuprofen medicatio n Not available Not available Not available 07/27/2024 5640 RxNorm Not Available [facility] - production 10/29/202 4 03:47:14 Medications Name Sig Start Date Stop Date Status Note LastModified by Organization Details LastModified Time loperamide 2 mg capsule TAKE 1 CAPSULE BY MOUTH TWICE A DAY NEEDED FOR DIARRHEA active Not Available Not Available No t Available valacyclovir 1 gram tablet TAKE 1 TABLET BY MOUTH 3 TIMES A DAY FOR 7 DAYS active Not Available Not Available N ot Available clonazepam 0.5 mg tablet TAKE 1 TABLET BY MOUTH EVERY DAY NEEDED FOR ANXIETY active Not Available Not Available No t Available valacyclovir 500 mg tablet TAKE 1 TABLET BY MOUTH EVERY DAY active Not Available Not Available No t Available tramadol 50 mg tablet TAKE 1 TABLET BY MOUTH EVERY 6 HOURS active Not Available Not Available No t Available Tessalon Perles 100 mg capsule Take 1 capsule 3 times a day by oral route. 2022 active Not Available Not Available Not Avai lable pantoprazole 40 mg tablet,delay ed release TAKE 1 TABLET BY MOUTH EVERY DAY BEFORE BREAKFAST active Not Available Not Available No t Available trazodone 150 mg tablet TAKE 1 TABLET BY MOUTH EVERYDAY AT BEDTIME active Not Available Not Available No t Available lidocaine 5 % topical patch PLEASE SEE ATTACHED FOR DETAILED DIRECTIONS active Not Available Not Available N ot Available omeprazole 20 mg capsule,terry yed release TAKE 1 CAPSULE BY MOUTH EVERY DAY active Not Available Not Available No t Available oxcarbazepin e 600 mg tablet TAKE 1 TABLET BY MOUTH TWICE A DAY active Not Available Not Available No t Available mupirocin 2 % topical ointment APPLY TO BOTH NOSTRILS TWICE DAILY active Not Available Not Available Not Available fluoxetine 20 mg capsule TAKE 1 CAPSULE BY MOUTH EVERY DAY active Not Available Not Available No t Available diclofenac 1 % topical gel APPLY 1 APPLICATOR TOPICALLY 2 TIMES DAILY NEEDED (PAIN). active Not Available Not Available No t Available Triumeq 600 mg-50 mg-300 mg tablet TAKE 1 TABLET BY MOUTH EVERY DAY active Not Available Not Available No t Available Flowflex COVID-19 Antigen Home Test kit USE DIRECTED. active Not Available Not Available No t Available Vitals Date Recorded Body weight Respiratory rate Body temperature Heart rate Oxygen saturation Oxygen saturation in Arterial blood by Pulse oximetry Body height Systolic And Diastolic Provider Name and Address Organization Details Last Updated DateTime 4 764976. 344 g 16 /min 100 [degF] 68 /min 98 % 98 % 167.64 cm 174/126 mm[Hg] Not Available [facility] - production 18:33:48 Date Recorded Respiratory rate Body weight Body temperature Heart rate Oxygen saturation Oxygen saturation in Arterial blood by Pulse oximetry Respiratory rate Oxygen saturation Oxygen saturation in Arterial blood by Pulse oximetry Body weight Body temperature Heart rate Provider Name and Address Organization Details Last Updated DateTime 3 16 /min 23418.5 6 g 98 [degF] 71 /min 99 % 99 % 16 /min 99 % 99 % 68008.5 6 g 98 [degF] 71 /min Not Available [facility] - production 3 14:46:24 Date Recorded Systolic And Diastolic Systolic And Diastolic Provider Name and Address Organization Details Last Updated DateTime 03/27/2023 134/83 mm[Hg] 134/83 mm[Hg] Not Available [facility] - production 03/27/2023 14:46:24 Social History None recorded. Functional Status None recorded. Mental Status None recorded. Family History Nothing Reported. Medical History No medical history recorded. Gynecological HistoryNo gynecological history recorded. Obstetrics History GPAL:G 0 P 0 0 0 0 Past Encounters Encounter ID Performer Location Encounter Start Date Encounter Closed Date Diagnosis/Indication Diagnosis SNOMED-CT Code Diagnosis ICD10 Code Diagnosis IMO Codes Diagnosis Note [id number] Leo Vega MD [facility] [address] [place] [phone] 03/27/2023 14:30:06 03/27/2023 22:32:24 Viral upper respiratory tract infection 162025834 J06.9 Patient reports nasal drainage, sore throat, dry cough, and low grade temperatur e. All most consistent with viral URI. No high fever, purulent sputum, or focal rales to suggest bacterial pneumonia. Appearance of nasal secretions not consistent with bacterial sinusitis, particuarl y given coexisting cough, sore throat, etc. She has been taking Mucinex with some improvemen tAmado Porter d she add an OTC decongesta nt, will administer Tessalon Perles as well. [id number] Leo Vega MD [facility] [address] [place] [phone] 01/11/2024 18:33:47 01/12/2024 18:56:34 Viral syndrome 646845994 B34.9 Patient with cough, nasal congestion , GI upset, all most consistent with viral infection. Examinatio n unremarkab le, vitals notable for low-grade temperatur e and elevated blood pressure. Advised continued home-based care and PCP follow-up for recheck of BP. Health Concerns Section Related Observation LastModified by Organization Detai ls LastModified Time None Recorded Concern Status LastModified by Organization Details LastModified Time None Recorded Advance Directives Directive None Recorded Payers Insurance Date Sequence Insurance Name Policy Number Policy Mooney Covered Member ID Mooney Member ID Guarantor Name 01/11/2024 1 [facility] - DOS ON OR AFTER 2022 - DUAL ELIGIBLE - [employer] OPT[employer] AND ONE C[employer] (MEDICARE REPLACEMENT/ADV ANTAGE - HMO) Nataliya Olivier [id number] Nataliya Olivier Notes Date Note Type Note Provider Name and Address Organization Details Recorded Time 03/27/2023 text/html [facility] Nursing Assessment: Reason For Request: Undetectable since 2012 Pt reporting sore throat, cant stop coughing, woke up with diarrhea and puffy eyes, ears hurts, head hurts (pounding) around the ears. chest hurts when coughing, unable to get rid of headache. 99.6 temp yesterday. Tested for covid at home = NEGATIVE. feels as if head will blow up from the pressure Symptoms blew up this morning, woke up very ill today. Cloudy white phlegm. Patient Reports: Cough Chief Complaints: URI, Cough, Nausea/Vomiting, Headache PMH: COPD/Asthma, HIV, Other Allergies: Ibuprofen Comments: Member calling with request for [facility] visit for eval cough ST myalgias and diarrhea x 2 days. Low grade temp. Attempt OTC cough med with fair effect. Speaking in full sentences no distress noted. Verify name/- ................... ................... ................... ................... ................... ................... ................... ........ Farm Appraiser Note From Eric Garduno: Sp CO CO Pt States kaley has liasa costaresonas sa pe rsister procuctive couss : Pt denies sputum, Pt states also has rasal congestion, sore throat, and ear fullness' any N/V, had some diarrhea (4 - 5 episodes) . Pt feels tired and weak. Pt went swimming [place] a [place] on [place] . Pt has been taking Musenx with some relief. Neg Covid/Flu/Strep. PERRLA. No significant findings with throat exam. TTP to sinus. IM's clear and movable. No lyphnode edema noted. Pt denies SOB or Chest Pn. Pt able to communicate in full uninterrupted sentences. discussed with Pt about treatment options, when to go to ED or call 911. Educated Pt on supportive care . Pt understood all instructions. Farm Appraiser Allergies: Ibuprofen ................... ................... ................... ................... ................... ................... ................... ........ Disposition: Fulfilled Leo Vega MD [address] [place] [address],[address], [place], [phone], [facility] 03/27/2023 16:45:31 01/11/2024 text/html [facility] Nurse Triage Notes (Ольга Whiting): Chief Complaints: URI, Shortness of Breath/Dyspnea, Pain, Fever/Chills, Cough PMH: COPD/Asthma, HIV Allergies: Ibuprofen Comments: Music Leader verified name//address. Fever the last 2 days. Sinus pressure and headache. Sore throat. Productive cough. Body aches. No known sick exposure. Education provided on the response time and the member was advised to monitor reported s/s and seek emergency treatment if needed ................... ................... ................... ................... ................... ................... ................... ........ Farm Appraiser Note From Jc Aponte: Pt reports several days of productive cough, sinus congestion, CALDERON, f/n/v/d. Pt denies bloody stool or vomit, CP, SOB, LAROSE. Pt using OTC s with some relief. Pt is alert, NAD. Hypertensive, VS otherwise stable. Temp 100.0. Non focal neuro exam. Lungs CTA. Benign ABD exam. No LE edema. Rapid covid, flu and strep negative. Pt educated on supportive care measures, advised to f/u with PCP regarding BP and to seek emergent medical care for new or worsening sx, which are reviewed with her. ................... ................... ................... ................... ................... ................... ................... ........ Disposition: Fulfilled Leo Vega MD [address] [facility],[address], [place], [phone], [place] [facility] 01/11/2024 18:58:18 OBGyn Episode No OBEpisode recorded.
--- OUTSIDE RECORDS SUMMARY | 2025-07-29 16:54 | XMS_ITS | Clinical Summary ---
Author Organization [facility] [address] [place] [place] [address] [place] [phone] Phone Care Team Providers Care Project Designer Name Role Phone Scarlett Padron MD Primary Care Provider [phone] Allergies Active Allergy Reactions Criticality Noted Date Comments Cyclobenzaprine Hcl 03/16/2009 Other Reaction(s): OTHER Diclofenac Medium 07/18/2023 Other Reaction(s): Rash/Dermatitis Ibuprofen High 01/14/2022 Other reaction(s): Other Pork Extract High 01/14/2022 Other reaction(s): Hives Medications lactose-reduced food (BOOST ORAL) Take 2 Cans by mouth daily. TASHIA-99 2 cans daily 60 cans per month with 11 refills Vanilla flavor 4 Active nystatin (MYCOSTATIN) 100,000 unit/gram powder APPLY TOPICALLY ON THE RASH (UNDER THE BREAST) TWICE A DAY FOR 7 TO 10 DAYS 4 Active traZODone (DESYREL) 150 mg tablet Take 1 Tablet by mouth at bedtime. 3 Active lactose-reduced food (ENSURE ORAL) Take 2 Cans by mouth daily. TASHIA-99 2 cans /day 60 cans/month 11 refills Vanilla flavor only 3 Active OXcarbazepine (TRILEPTAL) 600 mg tablet Take 1 tablet (600 mg total) by mouth 1 (one) time each day. 3 Active loperamide (IMODIUM A-D) 2 mg tablet Take 1 Tablet by mouth 2 times daily as needed for Diarrhea. 2 Active clonazePAM (KlonoPIN) 0.5 mg tablet TAKE 1 TABLET BY MOUTH ONCE DAILY NEEDED FOR PANIC 2 Active abacavir-dolutegr avir-lamiVUDine (Triumeq) 600-50-300 mg per tablet 1 Active biotin 1 mg tablet Take by mouth 1 (one) time each day. Active valACYclovir (VALTREX) 500 mg tablet Take 1 tablet (500 mg total) by mouth 1 (one) time each day. Active albuterol HFA (PROAIR HFA ; PROVENTIL HFA ; VENTOLIN HFA) 90 mcg/actuation inhaler Inhale 2 puffs by mouth every 4 (four) hours if needed. Active multivit-min/ferr ous fumarate (MULTI VITAMIN ORAL) 1 tablet daily Activ e pantoprazole (PROTONIX) 40 mg EC tablet Take 1 tablet (40 mg total) by mouth 1 (one) time each day. 90 tablet 1 5 Active lidocaine (LIDODERM) 5 % patchIndications: Lumbar spondylolysis Apply topically 1 (one) time each day. Remove & discard patch within 12 hours or as directed by MD. 30 patch 2 5 Active diclofenac (VOLTAREN) 1 % topical gel APPLY 1 APPLICATOR TOPICALLY 2 TIMES DAILY NEEDED (PAIN). 100 g 1 5 Active Additional Information Patient not taking.Reported on 07/20/2025 Active Problems Problem Noted Date Diagnosed Date Asymptomatic HIV infection, with no history of HIV-related illness ([facility] V24, [facility] V28) 09/23/2024 Primary osteoarthritis of right knee 02/19/2024 Lumbar spondylolysis 10/29/2022 Overview (09/23/2024): Last Assessment & Plan: Ms. Olivier describes low back pain that is chronic but worse since a fall last summer. Her MRI shows pars fractures at L5. She is most interested in pursuing conservative measures and I think that that is reasonable. She asked for a prescription for physical therapy and I did supply that. I would also like to get some x-rays of her lumbar spine with flexion and extension views to rule out any instability. She is welcome to follow-up with us in the future if things do not improve. Hyperlipidemia 01/09/2022 Overview (09/23/2024): ASCVD 2% Asthma 06/07/2021 DDD (degenerative disc disease), lumbosacral 05/2021 Overview (09/23/2024): 01/22/2019 MR: Mild multilevel. Facet arthropathy at L5-S1 associated w/ 9mm extracanalicular synovial cyst. Disc buldge w/ a central disc protrusion at L4-5 Herpes simplex virus infection 06/07/2021 Overview (09/23/2024): Onset 10/02/2016. 1 or 2 not documented. Osteoarthritis 06/07/2021 Overview (09/23/2024): Knees bilaterally. Anxiety 05/15/2021 Bilateral knee pain 05/15/2021 Overview (09/23/2024): Multiple knee injections/blocks. Saw GRACE Matthew HTN (hypertension) 05/15/2021 PTSD (post-traumatic stress disorder) 05/15/2021 Spondylosis 05/15/2021 Overview (09/23/2024): Lumbar and cervical region. Bilateral cervical medial branch nerve block C4-5, C5-6, C6-7. 04/07/2019 Varicose veins of legs 05/15/2021 Overview (09/23/2024): Bilateral. Acquired immunodeficiency sy ndrome ([facility] V24, [facility] V28) 06/15/2013 Pneumocystis jiroveci pneumonia ([facility] V24, [facility] /[facility] V28) 06/15/2013 Depression 09/18/2010 Restless leg syndrome 05/01/2009 Obesity 04/06/2009 Chronic back pain 03/16/2009 GERD (gastroesophageal reflux disease) 9 Herniated lumbar intervertebral disc 03/16/2009 Overview (09/23/2024): [address] Lucio Encounters Date Type Department Care Team Description 07/20/2025 12:30 PM EDT Office Visit Adult [address] [address] Gretta Dupont PA Lumbar spondylolysis (Primary Dx); Primary osteoarthritis of right knee from Last 3 Months Immunizations Immunization Administration Dates Next Due Pfizer SARS-CoV-2 COVID-19, mRNA, LNP-S, preservative free 08/29/2021 Tdap Tetanus diptheria acell ular pertussis (Boostrix; Adacel) 7yo and older 03/16/2009 Surgical History Surgery Date Site/Laterality Comments GASTRIC BYPASS 2015 PROCEDURE: DC GASTRIC RSTCV W/BYP W/SM INT RCNSTJ LIMIT ABSRPJ CHOLECYSTECTOMY 1998 PROCEDURE: DC CHOLECYSTECTOMY SECTION 1992 PROCEDURE: DC DELIVERY ONLY BREAST REDUCTION 1999 PROCEDURE: DC BREAST REDUCTION ESOPHAGOGASTRODUODENOSCOPY 08/14/2022 PROCEDURE: DC EGD TRANSORAL BIOPSY SINGLE/MULTIPLE; COMMENT: gastric bypass, biopsy c/w GERD Medical History Medical History Date Comments 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 Stevan Pro, GRACE, was admitted to [facility] on 05/21/2013 for respiratory failure due to pneumocystis pneumonia Genital herpes DX:Genital herpe s; COMMENT: per patient, no records from [place] PCP ON 04/27/2020 Low back pain DX:Low back pain ; COMMENT: was seeing pain management in [place] Dr. Oconnell, no records Varicose veins of legs 05/15/2021 DX:Varico se veins of legs; COMMENT: Bilateral HTN (hypertension) 05/15/2021 DX:HTN (hyper tension) Anxiety 05/15/2021 DX:Anxiety PTSD (post-traumatic stress disorder) 05/15/2021 DX:PTSD (post-traumatic stress disorder) Spondylosis 05/15/2021 DX:Spondylosis; COMMENT: Lumbar and cervical region. History of bariatric surgery 05/15/2021 DX: History of bariatric surgery; COMMENT: Gastric bypass. 2016 Bilateral knee pain 05/15/2021 DX:Bilateral knee pain; COMMENT: Multiple knee injections/blocks. Saw GRACE Matthew Herpes simplex virus infection 06/07/2021 D X:Herpes simplex virus infection; COMMENT: Onset 10/02/2016. 1 or 2 not documented. Osteoarthritis 06/07/2021 DX:Osteoarthriti s; COMMENT: Knees bilaterally. Asthma 06/07/2021 DX:Asthma DDD (degenerative disc disea se), lumbosacral 06/07/2021 DX:DDD (degenerative disc di sease), lumbosacral; COMMENT: And facet arthropathy at L5-S1 associated w/ 9mm extracanalicular synovial cyst. Disc buldge w/ a central disc protrusion at L4-5 Family History Medical History Relation Name Comments Other: epilepsy Father Lung cancer Maternal Grandfather at 55. Breast cancer Paternal Grandfather Other: Ovarian Cancer Sister 1 Relation Name Status Comments Brother Alive Father Alive Maternal Grandfather Mother Alive epilepsy Paternal Grandfather Sister 1 Sister 2 Alive Social History Tobacco Use Types Packs/Day Years Used Date Smoking Tobacco: Former Cigarettes Smokeless Tobacco: Never Tobacco Cessation:Counseling Given: Not Answered Alcohol Use Standard Drinks/Week Comments Yes 0 (1 standard drink = 0.6 oz pur e alcohol) Comments No Sex and Gender Information Value Date Recorded Sex Assigned at Not on file Legal Sex Female 9:13 PM EST Gender Identity Not on file Sexual Orientation Not on file Obstetrics History Last Filed Vital Signs Vital Sign Reading Time Taken Comments Blood Pressure 118/76 07/20/2025 12:44 PM EDT Pulse 82 07/20/2025 12:44 PM EDT Temperature 36.4 C (97.5 F) 07/20/2025 12:44 PM EDT Respiratory Rate 16 07/20/2025 12:44 PM EDT Oxygen Saturation 98% 07/20/2025 12:44 PM EDT Inhaled Oxygen Concentration - - Weight 98.4 kg (217 lb) 07/20/2025 12:44 PM EDT Height 167.6 cm (5' 6 ) 07/20/2025 12:44 PM EDT Body Mass Index 35.02 07/20/2025 12:44 PM EDT Plan of Treatment Upcoming Encounters Date Type Department Care Team (Late st Contact Info) Description 01/20/2026 1:30 PM EDT Office Visit Adult Medicine [address] [phone] Scarlett Padron MD [address] [place] [phone] Health Maintenance Due Date Last Done Comments Breast Cancer Screening 1974 Colorectal Cancer Screening: Colonoscopy 1974 Meningococcal ACWY Vaccine ( 1 - Risk 2-dose series) 02/02/1976 MMR Vaccines (1 of 2 - Risk 2-dose series) 02/02/1992 Hepatitis A Vaccines (1 of 2 - Risk 2-dose series) 1993 Hepatitis B Vaccines (1 of 3 - 19+ 3-dose series) 1993 Pneumococcal Vaccine: 50+ Years (1 of 2 - PCV) 1993 Zoster Vaccines (1 of 2) 1993 DTaP,Tdap,and Td Vaccines (2 - Td or Tdap) 03/16/2019 03/16/2009 COVID-19 Vaccine (3 - Pfizer risk series) 09/26/2021 08/29/2021, 08/08/2021 Hepatitis C Screening 09/07/2022 Medicare Annual Wellness Visit 09/07/2022 Social Influencers of Health Screening 09/07/2022 RSV Immunization Adult Patients (1 - Risk 50-74 years 1-dose series) 02/02/2024 Depression Screening 09/29/2024 Influenza Vaccine (#1) 2025 Hypertension/CHF/CAD Annual BMP Blood Test 03/16/2026 03/16/2025, 06/18/2022 Cervical Cancer Screening: HPV 06/04/2027 06/04/2022 Cholesterol Screening (Lipid Panel) 06/18/2027 06/18/2022 HIB Vaccines Aged Out No longer eligi ble based on patient's age to complete this topic HPV Vaccines Aged Out No longer eligi ble based on patient's age to complete this topic IPV Vaccines Aged Out No longer eligi ble based on patient's age to complete this topic Meningococcal B Vaccine Aged Out No l onger eligible based on patient's age to complete this topic RSV Immunization Patients Under 20 months Aged Out No longer eligible b ased on patient's age to complete this topic Varicella Vaccines Aged Out No longer eligible based on patient's age to complete this topic Procedures Procedure Name Priority Date/Time Associated Diagnosis Comments COMPREHENSIVE METABOLIC PANEL Routine 03/16/2025 3:06 PM EDT Lumbar spondylolysis Primary osteoarthritis of right knee LIPID PANEL Routine 06/18/2022 HM HPV Routine 06/04/2022 from Last 3 Months or Most Recently Relevant to Health Maintenance Results * Comprehensive metabolic panel (03/16/2025 3:06 PM EDT) Sodium 137 133 - 145 mmol/L LAB CHEMISTRY METHOD 03/16/2025 6:51 PM [facility] Potassium 4.1 3.5 - 5.5 mmol/L LAB CHEMISTRY METHOD 03/16/2025 6:51 PM [facility] Chloride 102 96 - 110 mmol/L LAB CHEMISTRY METHOD 03/16/2025 6:51 PM [facility] CO2 29 21 - 32 mmol/L LAB CHEMISTRY METHOD 03/16/2025 6:51 PM [facility] Anion Gap 6 3 - 11 LAB CHEMISTRY METHOD 03/16/2025 6:51 PM [facility] Glucose 88 70 - 100 mg/dL LAB CHEMISTRY METHOD 03/16/2025 6:51 PM [facility] BUN 9 5 - 25 mg/dL LAB CHEMISTRY METHOD 03/16/2025 6:51 PM [facility] Creatinine 0.63 0.50 - 1.10 mg/dL LAB CHEMISTRY METHOD 03/16/2025 6:51 PM [facility] eGFR 108 >=60 mL/min/1. 73m2 LAB CHEMISTRY METHOD 03/16/2025 6:51 PM [facility] Comment:Calculation based on the Chronic Kidney Disease Epidemiology Collaboration (CKD-EPI) equation refit without adjustment for race. BUN/Creatinine Ratio 14.3 LAB CHEMISTRY METHOD 03/16/2025 6:51 PM [facility] Calcium 9.8 8.5 - 10.5 mg/dL LAB CHEMISTRY METHOD 03/16/2025 6:51 PM EDT [facility] AST (SGOT) 17 10 - 42 unit/L LAB CHEMISTRY METHOD 03/16/2025 6:51 PM EDT [facility] ALT (SGPT) 23 10 - 60 unit/L LAB CHEMISTRY METHOD 03/16/2025 6:51 PM EDT [facility] Alkaline Phosphatase 101 42 - 121 unit/L LAB CHEMISTRY METHOD 03/16/2025 6:51 PM EDT [facility] Total Protein 7.0 6.0 - 8.0 g/dL LAB CHEMISTRY METHOD 03/16/2025 6:51 PM EDT [facility] Albumin 3.8 3.2 - 5.0 g/dL LAB CHEMISTRY METHOD 03/16/2025 6:51 PM EDT [facility] Total Bilirubin 0.3 0.0 - 1.4 mg/dL LAB CHEMISTRY METHOD 03/16/2025 6:51 PM EDT [facility] Blood Venous blood specimen / Unknown Venipuncture / Unknown 03/16/2025 3:06 PM EDT 03/16/2025 3:06 PM EDT Gretta NUNEZ LAB BLOOD ORDERABLES Final Res ult [facility] [address] [place] [address], * (ABNORMAL) Lipid panel (06/18/2022) LDL/HDL Ratio 3 0 - 4 Triglycerides 156(A) 0 - 150 mg/dL Cholesterol 218(A) 0 - 200 mg/dL HDL 83 >=40 mg/dL LDL Cholesterol 104(A) 0 - 100 mg/dL Blood Venous blood specimen / Unknown Historical Provider LAB BLOOD ORDERABLES Gladys l Result * Hm Cervical Cancer Screening: HPV (06/04/2022) Cervical Cancer Screening: HPV abstracted, negative Historical Provider HEALTH MAINTENANCE Final Result from Last 3 Months or Most Recently Relevant to Health Maintenance Insurance [employer] Member Subscriber Plan / Payer (Ef fective 2021-Present) Name:NATALIYA OLIVIER Relation to Subscriber:Self Name:Nataliya Olivier Payer ID:[id number] Group ID:[id number] Type:Not on file Address: [place] [address] [address] [phone] Care Teams Project Designer Relationship Specialty Start Date End Date Scarlett Padron MD [address] [place] [phone] PCP - General Internal Medicine 05/06/22
--- OUTSIDE RECORDS SUMMARY | 2025-07-29 16:54 | XMS_ITS | Patient Health Record ---
Author Organization [facility] Address [address] [place] [address] Care Team Providers Care Fire Apparatus Sprinkler Inspector Name Role Phone NO, PCP Primary Care Provider To [place] Unavailable [phone] Reason For Referral No Information Plan Of Treatment No Information Insurance Providers Payer Name Payer Address Payer Phone Subscriber Number Group Number Insured Name Patient Relationship to Insured Coverage Start Date Coverage End Date [place] Medicaid Standard [address] [place] [address] [id number] Nataliya Olivier Self - patient is the insured 2
[2025-07-29] MEDS: iohexoL 350 MG/ML 100 ML INFUS..BTL IV (19:01)
--- NOTE | 2025-07-29 20:03 | PM.CNGS ---
History of Present Illness Consult details Consult date: 07/29/25 Narrative: 50-year-old female here in the ER for umbilical discharge She says that she has OCD and was cleaning her umbilicus [id number] loosely with Q-tips 4 days ago. She says that she normally does not do this. She says after that she had some pain in the area and some redness. This to have improved after 1 day but she noticed some drainage starting 2 days ago. She also noticed redness of the area since 2 days ago which she says was actually worse yesterday. She noted persistence of the drainage shows he came to the ER today She denies any fever or chills She does have a history of gastric bypass and revision about 20 years ago. She had abdominoplasty and had reconstruction of her umbilicus after that She is also HIV positive but says her viral load are undetectable. She admits to being extremely anxious. Review of Systems Review of Systems: Has anxiety Constitutional: Constitutional: Denies chills and Denies fever(s) Cardiovascular: Cardiovascular: Denies chest pain, Denies dyspnea and Denies dyspnea on exertion Respiratory: Respiratory: Denies cough, Denies dyspnea and Denies dyspnea on exertion Gastrointestinal: Gastrointestinal: Denies hematochezia and Denies change in bowel habits Genitourinary: Genitourinary: Denies hematuria Musculoskeletal: Musculoskeletal: Denies back pain and Denies limited range of motion Neurologic: Denies focal weakness and Denies convulsions Psychiatric: Psychiatric: Denies depression and Denies mood swings PMFSH Past Medical History Medical History (Updated 07/29/25 @ 20:56 by SILVIA Jaramillo) Insomnia HSV (herpes simplex virus) anogenital infection Obesity Allergic rhinitis Claustrophobia OCD (obsessive compulsive disorder) Panic attack GERD (gastroesophageal reflux disease) Cellulitis Anxiety HIV (human immunodeficiency virus infection) Surgical History Surgical History (Updated 07/29/25 @ 20:53 by SILVIA Jaramillo) Hx of breast reduction, elective History of cholecystectomy Gastric bypass status for obesity Social History Social History Household Members: None Housing: Apartment Do you presently have visiting nurse or other home services: Yes ([employer] help, visiting nursing every 6 month) Patient Tobacco Use Status: Never used Tobacco Substance Use Type: Marijuana service: No Meds Allergies Allergy/AdvReac Type Severity Reaction Status Date / Time cyclobenzaprine (From Allergy Agitated Verified 07/29/25 14:34 Flexeril) ibuprofen Allergy Rash Verified 07/29/25 14:34 pork derived (porcine) Allergy Unknown Verified 07/29/25 14:34 Active Medications: Current Medications Ceftriaxone Sodium 1 gm/ (Sodium Chloride) 50 mls @ 100 mls/hr IV ONCE ONE Stop: 07/29/25 20:23 Metronidazole (Flagyl) 500 mg in 100 mls @ 100 mls/hr IV ONCE ONE Stop: 07/29/25 20:53 Home Medications ?Medication ?Instructions ?Recorded ?Confirmed ?Last Taken ?Type abacavir 600 mg-dolutegravir 50 1 tab PO DAILY 07/29/25 07/29/25 07/28/25 History mg-lamivudine 300 mg tablet (Triumeq) clonazepam 0.5 mg tablet 0.5 mg PO BEDTIME anxiety 07/29/25 07/29/25 07/28/25 History multivitamin 1 tab PO DAILY 07/29/25 07/29/25 07/28/25 History oxcarbazepine 600 mg tablet 600 mg PO BEDTIME 07/29/25 07/29/25 07/28/25 History pantoprazole 40 mg tablet,delayed 40 mg PO DAILY@0630 07/29/25 07/29/25 07/28/25 History release trazodone 150 mg tablet 150 mg PO BEDTIME PRN Insomnia 07/29/25 07/29/25 07/28/25 History valacyclovir 500 mg tablet 500 mg PO DAILY 07/29/25 07/29/25 07/28/25 History Physical Exam Vital Signs: Vital Signs: Last Vital Signs Temp 98.3 F 07/29/25 16:40 Pulse 81 07/29/25 16:40 Resp 12 07/29/25 16:40 BP 102/51 L 07/29/25 16:40 Pulse Ox 99 07/29/25 16:40 O2 Del Method Room Air 07/29/25 16:40 BMI result Body Mass Index 35.0 Const: Other: Appears comfortable although very anxious General: comfortable and no acute distress Orientation/consciousness: patient oriented x3 Neck: Neck: Yes no lymphadenopathy Resp: Auscultation: clear to auscultation bilaterally Cardio: Rhythm: regular rhythm GI: Other: Surgical scars on abdomen Around the umbilicus is some redness, along with some scanty drainage from the umbilicus itself There is no fluctuance or induration Palpation (GI): Soft to palpation, nontender and no guarding Neuro: General: patient oriented x3 Results Labs 07/30/25 02:51 07/30/25 02:51 Labs: Abnormal lab results 07/29/25 Range/Units 16:09 RBC 4.15 L (4.20-5.50) X10*6/uL MCV 98.8 H (80.0-98.0) fL MCH 33.5 H (27.0-33.0) pg ESR 22 H (0-20) MM/HR BUN 7 L (9-16) mg/dL AST 38 H (5-31) U/L C-Reactive Protein 6.90 H (< or = 0.50) mg/dL Short CBC 07/29/25 Range/Units 16:09 WBC 8.7 (4.8-10.8) X10*3/uL Hgb 13.9 (12.0-16.0) g/dl Hct 41.0 (37.0-47.0) % Plt Count 343 (160-400) X10*3/uL BMP 07/29/25 16:09 Sodium 138 Potassium 4.7 Chloride 103 Carbon Dioxide 26 BUN 7 L Creatinine 0.64 Calcium 9.6 Liver Function 07/29/25 Range/Units 16:09 Total Bilirubin 0.4 (0.0-1.0) mg/dL AST 38 H (5-31) U/L ALT 21 (0-31) U/L Alkaline Phosphatase 93 (39-117) U/L Albumin 4.6 (3.5-5.0) g/dL All other labs normal. Imaging Abdomen CT scan report/results: report reviewed and image reviewed CT scan - pelvis: report reviewed and image reviewed Additional studies: Unremarkable abdominal organs. Prior cholecystectomy. No bowel obstruction, pneumoperitoneum, or pneumatosis. There is infiltration of the soft tissues within the retro umbilical region associated with a small pocket of fluid. Mild edema of adjacent subcutaneous tissues in relative thickening of the overlying skin surface is noted. A pocket of fluid was also noted on the prior CT, however the associated inflammation is new. No umbilical hernia. Status post gastric bypass. No colitis or bowel obstruction. Pelvic contents unremarkable. Normal appendix. There are chronic bilateral pars defects at L5 associated with grade 2 spondylolisthesis without change. No acute fracture. IMPRESSION: There is an inflammatory process within the retro umbilical region likely associated with a small abscess as noted on recent ultrasound. Assessment and Plan (1) Cellulitis: Status: Acute She has redness and drainage from her umbilical area. Review of her CAT scan showed soft tissue stranding and maybe a small amounts of fluid. There is no drainable abscess The small fluid collection is already freely draining. I cleaned the umbilicus and applied dry dressings we gauze There is no surgical intervention indicated at this time. However, I would recommend that she be admitted for IV antibiotics in view of the cellulitis. I can follow her for wound care I discussed the above with the patient and the ER staff. She is not septic looking and she appears comfortable she however admits to extreme anxiety and says that she needs her medications for tonight. Procedures Date of Service Date of Service: 07/31/25
--- NOTE | 2025-07-29 20:36 | PM.IMHP ---
History of Present Illness Date of Service: 07/29/25 Attending physician on admission: Kavya Grossman Chief Complaint: Umb infection Pt is a 50 yo female with PMH OCD, Panic attacks, anxiety, Claustrophobia, tobacco use disorder, marijuana use, GERD, HIV on tx, Gastric bypass 1997 with revision 2012, allergic rhinitis, insomnia presents to ED with complaint of drainage that worsened last night from the umbilicus area. Pt sates that due to her OCD, pt cleans herself excessively using brillo pads and other harsh products on her skin and umbilicus area and tries to clean the inside of her belly button often. What is new this time is pt used a Qtip and inserted inside her umbilicus area. Pt beleives she may have punctured something. The next day, area was red and irritated and by , was draining yellow brown drainage and this was concerning to patient. Pt seen in ED and was initially reporting that she was having a panic attack. Pt was expressing anger about not having anything to eat. Pt was able to calm down with support and agreed to admission for ABX and surgical consult. Pt was seen by Dr. Sadler in the ED and wanted pt admitted for ABX for the small retroumbilical abscess. Surgery will folllow daily and will manage dressing. At this time, Dr. Sadler does not think pt needs surgery. Pt calderon sno leukocytosis, fever, chills, N/V, chest pain and is reporting mild abdominal discomfort. As above US and CT confirm presence of retroumbilical abscess. CRP 6.9, ESR 22. Blood cultures and wound culture are pending. Pt was started on ceftriaxone and flagyl in the ED. Review of Systems Review of Systems: Pt denies chest pain, SOB at rest, N/V, CALDERON or visual changes. Pt is reporting mild abd discomfort, nasal congestion that is chronic. Pt is not feeling suicidal, homicidal and is not having hallucinaitons but reports intermittent anxiety, close to panic attack but was able to help herself and remain calm and states she is just overwhelmed. Yes all other systems are reviewed and are negative [facility] [place] Medical History (Updated 07/29/25 @ 20:56 by Tiarra Peoples, SILVIA) Insomnia HSV (herpes simplex virus) anogenital infection Obesity Allergic rhinitis Claustrophobia OCD (obsessive compulsive disorder) Panic attack GERD (gastroesophageal reflux disease) Cellulitis Anxiety HIV (human immunodeficiency virus infection) Cognitive capacity: A/O X3 Functional capacity: independent ambulation Patient : No Surgical History (Updated 07/29/25 @ 20:53 by SILVIA Jaramillo) Hx of breast reduction, elective History of cholecystectomy Gastric bypass status for obesity Social History Smoked in Last 30 Days: Yes Use of substances other than those prescribed or required for medical reasons: Yes Substance Use Type: Marijuana Advance Directives: No Advance Directives Information Provided: No Do you have a plan to hurt others: No Plan Patient : No Ebola Risk: Travel/Contact With Anyone From Affected Area/s: No Has Patient Experienced Ebola Symptoms: No Meds Allergies Allergy/AdvReac Type Severity Reaction Status Date / Time cyclobenzaprine (From Allergy Agitated Verified 07/29/25 14:34 Flexeril) ibuprofen Allergy Rash Verified 07/29/25 14:34 pork derived (porcine) Allergy Unknown Verified 07/29/25 14:34 Active Medications: Current Medications Acetaminophen (Acetaminophen 325 Mg Tablet) 650 mg PO Q6H PRN PRN Reason: Pain, Mild 1-3,fever,headache Albuterol/Ipratropium (Albuterol/Iprat 2.5/0.5mg 3 Ml Ampul.Neb) 3 ml INHALE Q4H PRN PRN Reason: Shortness of Breath/Wheezing Calcium Carbonate (Calcium Carbonate 750 Mg Tab.Chew) 750 mg PO Q4H PRN PRN Reason: Heartburn Enoxaparin Sodium (Enoxaparin Sodium 40 Mg/0.4 Ml Syringe) 40 mg SUBCUT Q24H MICHELLE Metronidazole (Flagyl) 500 mg in 100 mls @ 100 mls/hr IV ONCE ONE Stop: 07/29/25 20:53 Magnesium Hydroxide (Milk Of Magnesia 30 Ml Oral.Susp) 30 ml PO DAILY PRN PRN Reason: Constipation Melatonin (Melatonin 3 Mg Tablet) 6 mg PO BEDTIME PRN PRN Reason: Insomnia Ondansetron HCl (Ondansetron Hcl 4 Mg/2 Ml Vial) 4 mg IVPUSH Q8H PRN PRN Reason: Nausea and Vomiting Polyethylene Glycol (Polyethylene Glycol 3350 17 Gm Powd.Pack) 17 gm PO DAILY PRN PRN Reason: Constipation Sodium Chloride (0.9 % Sodium Chloride Flush 3 Ml Syringe) 3 ml IVFLUSH QSHIFT [facility] Home Medications ?Medication ?Instructions ?Recorded ?Confirmed ?Last Taken ?Type abacavir 600 mg-dolutegravir 50 1 tab PO DAILY 07/29/25 07/29/25 07/28/25 History mg-lamivudine 300 mg tablet (Triumeq) clonazepam 0.5 mg tablet 0.5 mg PO BEDTIME anxiety 07/29/25 07/29/25 07/28/25 History multivitamin 1 tab PO DAILY 07/29/25 07/29/25 07/28/25 History oxcarbazepine 600 mg tablet 600 mg PO BEDTIME 07/29/25 07/29/25 07/28/25 History pantoprazole 40 mg tablet,delayed 40 mg PO DAILY@0630 07/29/25 07/29/25 07/28/25 History release trazodone 150 mg tablet 150 mg PO BEDTIME PRN Insomnia 07/29/25 07/29/25 07/28/25 History valacyclovir 500 mg tablet 500 mg PO DAILY 07/29/25 07/29/25 07/28/25 History Physical Exam Vital Signs and Narrative: Vital Signs: Last Vital Signs Temp 98.3 F 07/29/25 16:40 Pulse 81 07/29/25 16:40 Resp 12 07/29/25 16:40 BP 102/51 L 07/29/25 16:40 Pulse Ox 99 07/29/25 16:40 O2 Del Method Room Air 07/29/25 16:40 BMI result Body Mass Index 35.0 Alert and orientated X3, able to give good history. Histrionic in the beginning very emotional expressing frustration that apologetic Neuro: CN II-X11 intact, no deficits, visual acuity intact EYES: PERRLA, EOM intact, sclerae nonicteric, conjunctiva pink ENT: hearing intact, no issues with swallowing, uvula midline, lips moist, nares patent no epistaxis Cardiac: S1 S2 RRR, no murmur, no JVD, no edema in Lower ext Pulmonary: lungs diminished bilateral, no adventitious sounds heard Abdominal: BS active in all 4 quadrants, no guarding, tenderness, rebounding MSK: strength 5/5 upper and lower extremities : no CVA tenderness no bladder distension Extremities: no edema in lower extremities, PT and DP pulses palpable +2 Psych: mood anxious, judgement and insight good Skin: Umbilical opening/abscess found on CT, dressing intact was done by surgery earlier unable to view the wound Results Labs 07/30/25 02:51 07/29/25 16:09 Labs: Laboratory Results - last 24 hr 07/29/25 16:09 MCV 98.8 H MCH 33.5 H MCHC 33.9 RDW 11.4 Plt Count 343 MPV 9.9 Immature Gran % (Auto) 0.3 Neut % (Auto) 49.6 Lymph % (Auto) 37.8 [place] % (Auto) 10.8 Eos % (Auto) 0.8 Baso % (Auto) 0.7 Lymph # (Auto) 3.3 [place] # (Auto) 0.9 Eos # (Auto) 0.1 Baso # (Auto) 0.1 Abs Immat Gran (auto) 0.03 Absolute Neuts (auto) 4.3 Absolute Nucleated RBC 0.000 Nucleated RBC % (auto) 0.0 ESR 22 H Anion Gap 14 Estim Creat Clear Calc 123.0 Estimated GFR > 60 Random Glucose 94 Calcium 9.6 Magnesium 2.1 Total Bilirubin 0.4 AST 38 H ALT 21 Alkaline Phosphatase 93 C-Reactive Protein 6.90 H Total Protein 7.7 Albumin 4.6 ECG Attestation: I personally reviewed and interpreted this ECG as follows: Imaging Radiologist's Impressions: CT ABD PELVIS Findings: The lung bases are clear. Unremarkable abdominal organs. Prior cholecystectomy. No bowel obstruction, pneumoperitoneum, or pneumatosis. There is infiltration of the soft tissues within the retro umbilical region associated with a small pocket of fluid. Mild edema of adjacent subcutaneous tissues in relative thickening of the overlying skin surface is noted. A pocket of fluid was also noted on the prior CT, however the associated inflammation is new. No umbilical hernia. Status post gastric bypass. No colitis or bowel obstruction. Pelvic contents unremarkable. Normal appendix. There are chronic bilateral pars defects at L5 associated with grade 2 spondylolisthesis without change. No acute fracture. IMPRESSION: There is an inflammatory process within the retro umbilical region likely associated with a small abscess as noted on recent ultrasound. US Findings: Ultrasound evaluation was performed of the soft tissues in the umbilical region. Evaluation is mildly limited by artifact. There is a 3.6 x 1.5 x 2.3 cm complex fluid collection within the retro umbilical region. No obvious hernia. Adjacent soft tissues are unremarkable. Impression: 1. 3.6 cm complex fluid collection within the retro umbilical region, suspicious for an abscess. Assessment and Plan (1) Abscess, umbilical: Status: Acute (2) Abdominal wall cellulitis: Status: Acute Plan Pt is a 50 yo female with PMH OCD, Panic attacks, anxiety, Claustrophobia, tobacco use disorder, marijuana use, GERD, HIV on tx, Gastric bypass 1997 with revision 2012, allergic rhinitis, insomnia presents to ED with complaint of drainage that worsened last night from the umbilicus area. Pt sates that due to her OCD, pt cleans herself excessively using brillo pads and other harsh products on her skin and umbilicus area and tries to clean the inside of her belly button often. What is new this time is pt used a Qtip and inserted inside her umbilicus area. Pt beleives she may have punctured something. The next day, area was red and irritated and by , was draining yellow brown drainage and this was concerning to patient. Pt being admitted for umb abscess noted on US and CT with surgery following. Retroumbilical abscess Pt has OCD, cleans skin excessively with harsh products and brillo. Used Qtip for the first time and may have gone too deep. US and CT confirm small abscess Pt seen by surgery, Dr. Sadler and changed dressing. Surgery consulted and will follow to do dressing in AM. Per ED report, no indication for surgery at this time. Continue flagyl and will change to cefepime as pseudomonas is suspected based on odor and presentation Blood culture and wound cultures pending CRP and ESR elevated, pt has no leukocytosis, fever or chills GERD Omeperazole Avoid food triggers ANxiety with hx of panic attacks, OCD Pt follows with therapist and psychiatris in outpatient setting continue aripiprazole, clonzepam, oxcarbazepine once med rec completed Insomnia Continue Trazodone HSV hx Continue valcyclovir prophylacticaly HIV Continue Triumeq Pt is undetected and follows with ID specialist regularly HX of gastric bypass Continue vit B supplementation Tobacco use Pt deferred need for NRT Pt counseled on the benefits of smoking cessation Marijuana use Pt only uses occasionally No hx of N/V, cyclical issues DVT prophylaxis: lovenox MED REC pending FULL CODE Quality Stroke Does the patient have a stroke diagnosis?: No Reason for No Anti-thrombotic by Day Two: N/A - Med Ordered VTE Prior VTE?: No VTE Risk Level:: Medical - moderate - high VTE Device Contraindication: N/A - Device Ordered VTE Drug Contraindication: N/A - Med Ordered
[2025-07-29 20:45] VITALS: BP 116/79; PULSE 78; RESP 18; TEMP 36.5; O2SAT 98
--- NOTE | 2025-07-29 21:13 | PC.NURSE ---
delay in administration of flagyl as pt still has cef infusing. pt went to the bathroom 2x so the infusion had to be paused. once cef is complete, flagyl will be given per nov.
[2025-07-29] MEDS: metroNIDAZOLE/NS 500 MG/100 ML PIGGYBACK 100 MG IV (22:21)
--- NOTE | 2025-07-29 22:33 | PHA.MEDREC ---
Addendum entered by Masha Oneal RPh 07/29/25 22:43: reviewed by [facility]. Original Note: Pharmacy Consult ? Medication Reconciliation Pharmacy has completed the medication reconciliation. Spoke with pt and she was able to confirm her medications. Pt confirmed she no longer taking Aripirazole due to it making her too groggy when taking it. Pt confirmed she takes her Clonazepam 0.5mg tab once at bedtime and not as written BID PRN; she never started the Antibiotics (Cephalexin or Doxycycline) that were prescribed to her today and she takes a Vitamin B12 tablet QD and D3 tablet QD but doesn't remember the dose of them at this time.
[2025-07-30] MEDS: 0.9 % Sodium Chloride Flush 3 ML SYRINGE IVFLUSH (01:03)
--- NOTE | 2025-07-30 01:08 | PC.NURSE ---
pt informed RN that pharmacy told her they do not carry her home medication of trilemeq. Pt informed RN that she took her own that she brought in from home at 2300- MD made aware.
[2025-07-30 03:15] LABS: MANUAL DIFF FLAG NO
[2025-07-30 03:16] LABS: Hematocrit 36.7 % (37.0-47.0); Hemoglobin 12.4 g/dl (12.0-16.0); Imm Gran Abs Auto 0.02 X10*3/uL (0.00-0.03); Imm Gran Pct Auto 0.3 % (0.0-0.4); Lymphocytes Absolute Auto 3.5 X10*3/uL (1.2-4.9); Mean Corpuscular HGB Conc 33.8 g/dl (31.0-35.0); Mean Corpuscular Hemoglobin 33.4 pg (27.0-33.0); Mean Corpuscular Volume 98.9 fL (80.0-98.0); NRBC Abs Auto 0.000 X10*3/uL (0.0-0.012); NRBC Pct Auto 0.0 /100WBC (0.0-0.2); Platelet Count 286 X10*3/uL (160-400); Red Blood Count 3.71 X10*6/uL (4.20-5.50); White Blood Count 7.9 X10*3/uL (4.8-10.8)
[2025-07-30 03:34] LABS: Anion Gap 14 (12-20); Blood Urea Nitrogen 7 mg/dL (9-16); Calcium 8.8 mg/dL (8.4-10.2); Carbon Dioxide 25 mmol/L (22-29); Chloride 105 mmol/L (96-108); Creatinine Clr Calc Pharmacy 133.5; Estimated Glomerular Filt Rate > 60; Potassium 3.6 mmol/L (3.3-5.1); Sodium 140 mmol/L (135-145)
[2025-07-30] MEDS: cefEPime HCl/D5W 2 GM/50 ML PIGGYBACK IV ×2 (04:23→12:43)
[2025-07-30] MEDS: metroNIDAZOLE/NS 500 MG/100 ML PIGGYBACK 100 MG IV (06:24)
--- NOTE | 2025-07-30 06:38 | HO.NURTONUR ---
50 F AxOx4 Full Code Admitting diagnosis: umbilical abscess ambulates with cane + HIV #20 RAC Flagyl infusing @ 100mL/hr cardiac diet general surgery consult
--- NOTE | 2025-07-30 07:39 | P.PNIM_ITS ---
Subjective Subjective Date of Service: 07/30/25 Review of Systems Review of Systems: Yes all other systems are reviewed and are negative Physical Exam 2 Vital Signs: Vital Signs: Last Vital Signs Temp 97.7 F 07/29/25 20:45 Pulse 78 07/29/25 20:45 Resp 18 07/29/25 20:45 BP 116/79 07/29/25 20:45 Pulse Ox 98 07/29/25 20:45 O2 Del Method Room Air 07/29/25 20:45 BMI result Body Mass Index 35.0 Objective Data Active Medications Abacavir/Lamivudine (Abacavir/Lamivudine 600/300 Tablet) 1 tab PO DAILY MICHELLE Acetaminophen (Acetaminophen 325 Mg Tablet) 650 mg PO Q6H PRN PRN Reason: Pain, Mild 1-3,fever,headache Albuterol/Ipratropium (Albuterol/Iprat 2.5/0.5mg 3 Ml Ampul.Neb) 3 ml INHALE Q4H PRN PRN Reason: Shortness of Breath/Wheezing Calcium Carbonate (Calcium Carbonate 750 Mg Tab.Chew) 750 mg PO Q4H PRN PRN Reason: Heartburn Clonazepam (Clonazepam 0.5 Mg Tablet) 0.5 mg PO BEDTIME MICHELLE Dolutegravir Sodium (Dolutegravir Sodium 50 Mg Tablet) 50 mg PO DAILY [facility] Enoxaparin Sodium (Enoxaparin Sodium 40 Mg/0.4 Ml Syringe) 40 mg SUBCUT Q24H [facility] Last Admin: 07/29/25 21:11 Dose: 40 mg Documented By: DOUGIE Cefepime HCl (Maxipime) 2 gm in 50 mls @ 100 mls/hr IV Q8H [facility] Last Infusion: 07/30/25 04:53 Dose: Infused Documented By: DOUGIE Metronidazole (Flagyl) 500 mg in 100 mls @ 100 mls/hr IV Q8H [facility] Last Infusion: 07/30/25 07:29 Dose: Infused Documented By: KIRK Lorazepam (Lorazepam 0.5 Mg Tablet) 0.5 mg PO Q4H PRN PRN Reason: Anxiety Magnesium Hydroxide (Milk Of Magnesia 30 Ml Oral.Susp) 30 ml PO DAILY PRN PRN Reason: Constipation Melatonin (Melatonin 3 Mg Tablet) 6 mg PO BEDTIME PRN PRN Reason: Insomnia Last Admin: 07/30/25 00:51 Dose: 6 mg Documented By: DOUGIE Multivitamins/Vitamin C (Multivitamin Tablet) 1 tab PO DAILY [facility] Omeprazole (Omeprazole 20 Mg Capsule.Dr) 20 mg PO DAILY@0630 [facility] Last Admin: 07/30/25 06:28 Dose: Not Given Documented By: DOUGIE Non-Admin Reason: Patient Refused Ondansetron HCl (Ondansetron Hcl 4 Mg/2 Ml Vial) 4 mg IVPUSH Q8H PRN PRN Reason: Nausea and Vomiting Oxcarbazepine (Oxcarbazepine 300 Mg Tablet) 600 mg PO BEDTIME [facility] Polyethylene Glycol (Polyethylene Glycol 3350 17 Gm Powd.Pack) 17 gm PO DAILY PRN PRN Reason: Constipation Sodium Chloride (0.9 % Sodium Chloride Flush 3 Ml Syringe) 3 ml IVFLUSH QSHIFT [facility] Last Admin: 07/30/25 07:38 Dose: Not Given Documented By: KIRK Non-Admin Reason: IV Running Trazodone HCl (Trazodone Hcl 50 Mg Tablet) 150 mg PO BEDTIME PRN PRN Reason: Insomnia Valacyclovir HCl (Valacyclovir Hcl 500 Mg Tablet) 500 mg PO DAILY [facility] Labs 07/30/25 02:51 07/30/25 02:51 Labs: Laboratory Results - last 24 hr 07/29/25 07/30/25 16:09 02:51 MCV 98.8 H 98.9 H MCH 33.5 H 33.4 H MCHC 33.9 33.8 RDW 11.4 11.5 Plt Count 343 286 MPV 9.9 10.3 Immature Gran % (Auto) 0.3 0.3 Neut % (Auto) 49.6 41.6 L Lymph % (Auto) 37.8 44.5 H [place] % (Auto) 10.8 12.0 H Eos % (Auto) 0.8 0.8 Baso % (Auto) 0.7 0.8 Lymph # (Auto) 3.3 3.5 [place] # (Auto) 0.9 0.9 Eos # (Auto) 0.1 0.1 Baso # (Auto) 0.1 0.1 Abs Immat Gran (auto) 0.03 0.02 Absolute Neuts (auto) 4.3 3.3 Absolute Nucleated RBC 0.000 0.000 Nucleated RBC % (auto) 0.0 0.0 ESR 22 H Anion Gap 14 14 Estim Creat Clear Calc 123.0 133.5 Estimated GFR > 60 > 60 Random Glucose 94 109 Calcium 9.6 8.8 D Magnesium 2.1 Total Bilirubin 0.4 AST 38 H ALT 21 Alkaline Phosphatase 93 C-Reactive Protein 6.90 H Total Protein 7.7 Albumin 4.6 Assessment and Plan Plan 50 yo female with PMH OCD, Panic attacks, anxiety, Claustrophobia, tobacco use disorder, marijuana use, GERD, HIV on tx, Gastric bypass 1997 with revision 2012, allergic rhinitis, insomnia presents to ED with complaint of drainage that worsened last night from the umbilicus area. Pt sates that due to her OCD, pt cleans herself excessively using brillo pads and other harsh products on her skin and umbilicus area and tries to clean the inside of her belly button often. What is new this time is pt used a Qtip and inserted inside her umbilicus area. Pt beleives she may have punctured something. The next day, area was red and irritated and by , was draining yellow brown drainage and this was concerning to patient. Pt being admitted for umb abscess noted on US and CT with surgery following. Retroumbilical abscess Pt has OCD, cleans skin excessively with harsh products and brillo. Used Qtip for the first time and may have gone too deep. US and CT confirm small abscess Pt seen by surgery, Dr. Sadler and changed dressing. Surgery consulted and will follow to do dressing in AM. Per ED report, no indication for surgery at this time. Continue flagyl and will change to cefepime as pseudomonas is suspected based on odor and presentation Blood culture and wound cultures pending CRP and ESR elevated, pt has no leukocytosis, fever or chills GERD Omeperazole Avoid food triggers ANxiety with hx of panic attacks, OCD Pt follows with therapist and psychiatris in outpatient setting continue aripiprazole, clonzepam, oxcarbazepine once med rec completed Insomnia Continue Trazodone HSV hx Continue valcyclovir prophylacticaly HIV Continue Triumeq Pt is undetected and follows with ID specialist regularly HX of gastric bypass Continue vit B supplementation Tobacco use Pt deferred need for NRT Pt counseled on the benefits of smoking cessation Marijuana use Pt only uses occasionally No hx of N/V, cyclical issues DVT prophylaxis: lovenox Quality Stroke Does the patient have a stroke diagnosis?: No Reason for No Anti-thrombotic by Day Two: N/A - Med Ordered VTE Prior VTE?: No VTE Risk Level:: Medical - moderate - high VTE Device Contraindication: N/A - Device Ordered VTE Drug Contraindication: N/A - Med Ordered
[2025-07-30 07:42] VITALS: BP 113/66; PULSE 67; RESP 14; TEMP 36.6; O2SAT 97
[2025-07-30 08:16] VITALS: BMI 35.0
[2025-07-30 08:27] VITALS: BP 125/64; PULSE 76; RESP 18; TEMP 36.2; O2SAT 97
--- NOTE | 2025-07-30 10:06 | P.PNGS_ITS ---
Subjective Subjective Date of Service: 07/30/25 Interval history: Denies new complaints No fever Feels well overall Physical Exam 2 Vital Signs: Vital Signs: Last Vital Signs Temp 97.2 F 07/30/25 08:27 Pulse 76 07/30/25 08:27 Resp 18 07/30/25 08:27 BP 125/64 07/30/25 08:27 Pulse Ox 97 07/30/25 08:27 O2 Del Method Room Air 07/30/25 08:27 BMI result Body Mass Index 35.0 Const: General: comfortable and no acute distress Resp: Effort & Inspection: normal respiratory effort Cardio: Rate: regular rate GI: Other: Redness around the umbilicus much improved, induration, no fluctuance, scanty drainage Palpation (GI): Soft to palpation, not firm, nontender and no guarding Objective Data Active Medications Abacavir/Lamivudine (Abacavir/Lamivudine 600/300 Tablet) 1 tab PO DAILY [facility] Last Admin: 07/30/25 09:49 Dose: Not Given Documented By: YUDI Non-Admin Reason: Patient Refused Comments: patient takes triumeq at night Acetaminophen (Acetaminophen 325 Mg Tablet) 650 mg PO Q6H PRN PRN Reason: Pain, Mild 1-3,fever,headache Last Admin: 07/30/25 09:43 Dose: 650 mg Documented By: YUDI Albuterol/Ipratropium (Albuterol/Iprat 2.5/0.5mg 3 Ml Ampul.Neb) 3 ml INHALE Q4H PRN PRN Reason: Shortness of Breath/Wheezing Calcium Carbonate (Calcium Carbonate 750 Mg Tab.Chew) 750 mg PO Q4H PRN PRN Reason: Heartburn Clonazepam (Clonazepam 0.5 Mg Tablet) 0.5 mg PO BEDTIME [facility] Dolutegravir Sodium (Dolutegravir Sodium 50 Mg Tablet) 50 mg PO DAILY [facility] Last Admin: 07/30/25 09:49 Dose: Not Given Documented By: YUDI Non-Admin Reason: Patient Refused Comments: patient takes Triumeq at night Enoxaparin Sodium (Enoxaparin Sodium 40 Mg/0.4 Ml Syringe) 40 mg SUBCUT Q24H [facility] Last Admin: 07/29/25 21:11 Dose: 40 mg Documented By: DOUGIE Cefepime HCl (Maxipime) 2 gm in 50 mls @ 100 mls/hr IV Q8H [facility] Last Infusion: 07/30/25 04:53 Dose: Infused Documented By: DOUGIE Metronidazole (Flagyl) 500 mg in 100 mls @ 100 mls/hr IV Q8H [facility] Last Infusion: 07/30/25 07:29 Dose: Infused Documented By: KIRK Lorazepam (Lorazepam 0.5 Mg Tablet) 0.5 mg PO Q4H PRN PRN Reason: Anxiety Magnesium Hydroxide (Milk Of Magnesia 30 Ml Oral.Susp) 30 ml PO DAILY PRN PRN Reason: Constipation Melatonin (Melatonin 3 Mg Tablet) 6 mg PO BEDTIME PRN PRN Reason: Insomnia Last Admin: 07/30/25 00:51 Dose: 6 mg Documented By: DOUGIE Multivitamins/Vitamin C (Multivitamin Tablet) 1 tab PO DAILY [facility] Last Admin: 07/30/25 09:47 Dose: 1 tab Documented By: YUDI Omeprazole (Omeprazole 20 Mg Capsule.Dr) 20 mg PO DAILY@0630 [facility] Last Admin: 07/30/25 06:28 Dose: Not Given Documented By: DOUGIE Non-Admin Reason: Patient Refused Ondansetron HCl (Ondansetron Hcl 4 Mg/2 Ml Vial) 4 mg IVPUSH Q8H PRN PRN Reason: Nausea and Vomiting Oxcarbazepine (Oxcarbazepine 300 Mg Tablet) 600 mg PO BEDTIME [facility] Polyethylene Glycol (Polyethylene Glycol 3350 17 Gm Powd.Pack) 17 gm PO DAILY PRN PRN Reason: Constipation Sodium Chloride (0.9 % Sodium Chloride Flush 3 Ml Syringe) 3 ml IVFLUSH QSHIFT [facility] Last Admin: 07/30/25 07:38 Dose: Not Given Documented By: KIRK Non-Admin Reason: IV Running Trazodone HCl (Trazodone Hcl 50 Mg Tablet) 150 mg PO BEDTIME PRN PRN Reason: Insomnia Valacyclovir HCl (Valacyclovir Hcl 500 Mg Tablet) 500 mg PO DAILY [facility] Last Admin: 07/30/25 09:47 Dose: 500 mg Documented By: YUDI Labs 07/30/25 02:51 07/30/25 02:51 Labs: Laboratory Results - last 24 hr 07/29/25 07/30/25 16:09 02:51 MCV 98.8 H 98.9 H MCH 33.5 H 33.4 H MCHC 33.9 33.8 RDW 11.4 11.5 Plt Count 343 286 MPV 9.9 10.3 Immature Gran % (Auto) 0.3 0.3 Neut % (Auto) 49.6 41.6 L Lymph % (Auto) 37.8 44.5 H [place] % (Auto) 10.8 12.0 H Eos % (Auto) 0.8 0.8 Baso % (Auto) 0.7 0.8 Lymph # (Auto) 3.3 3.5 [place] # (Auto) 0.9 0.9 Eos # (Auto) 0.1 0.1 Baso # (Auto) 0.1 0.1 Abs Immat Gran (auto) 0.03 0.02 Absolute Neuts (auto) 4.3 3.3 Absolute Nucleated RBC 0.000 0.000 Nucleated RBC % (auto) 0.0 0.0 ESR 22 H Anion Gap 14 14 Estim Creat Clear Calc 123.0 133.5 Estimated GFR > 60 > 60 Random Glucose 94 109 Calcium 9.6 8.8 D Magnesium 2.1 Total Bilirubin 0.4 AST 38 H ALT 21 Alkaline Phosphatase 93 C-Reactive Protein 6.90 H Total Protein 7.7 Albumin 4.6 Microbiology Microbiology Results: Microbiology 07/29/25 17:47 Gram Stain - Final Abdomen - Abdominal Procedures Date of Service Date of Service: 07/30/25 Progress Note: A&P Assessment and plan (1) Abdominal wall cellulitis: Status: Acute Assessment and Plan: No need to do I and D at this time I changed her dressings Fluid collection appears to have drained Cellulitis resolved I have instructed her on good wound care Okay to discharge on oral antibiotics She is comfortable with the plan Time Spent With Patient Time: Total time managing care of this patient today ____ minutes. Quality Stroke Does the patient have a stroke diagnosis?: No Reason for No Anti-thrombotic by Day Two: N/A - Med Ordered VTE Prior VTE?: No VTE Risk Level:: Medical - moderate - high VTE Device Contraindication: N/A - Device Ordered VTE Drug Contraindication: N/A - Med Ordered
--- NOTE | 2025-07-30 14:45 | MHC.CM.PN ---
Addendum entered by Dana Porter 07/30/25 14:58: PT CLEARED TO DC HOME TODAY WITH NO NEW SERVICES PT TO ARRANGE TRANSPORT Original Note: PT REPORTS SHE LIVES ALONE AND HAS [employer] DAILY SHE ALSO HAS A [employer] CM THAT CHECKS IN Q 6 MONTHS PT HAS A CANE, WALKER AND COMMODE, SHE SAYS SHE DOES NOT NEED DME WHEN FEELING WELL SHE DECLINES A HCP PCP: CAPRI BARNETT IMM DELIVERED DCP: HOME RESUME [employer] SON OR OTHER [employer] WILL TRANSPORT
--- NOTE | 2025-07-30 14:47 | P.DS_ITS ---
DS: Providers Provider Date of Service: 07/30/25 Date of admission: 07/29/25 20:30 Date of discharge: 07/30/25 Primary care physician: Scarlett Padron MD Consults: 07/29/25 20:32 Consult to General Surgery Routine Consulting Provider: [facility] [place] General Surgeons Reason for consultation: umb abscess Has provider been notified: Yes Attending physician on discharge: Venancio Ortiz Discharging clinician: Venancio Ortiz DS: Diagnosis Discharge Diagnosis (1) Abdominal wall cellulitis: Status: Acute DS: Summary Hospital Course Hospital Course: HPI:50 yo female with PMH OCD, Panic attacks, anxiety, Claustrophobia, tobacco use disorder, marijuana use, GERD, HIV on tx, Gastric bypass 1997 with revision 2012, allergic rhinitis, insomnia presents to ED with complaint of drainage that worsened last night from the umbilicus area. Pt sates that due to her OCD, pt cleans herself excessively using brillo pads and other harsh products on her skin and umbilicus area and tries to clean the inside of her belly button often. What is new this time is pt used a Qtip and inserted inside her umbilicus area. Pt beleives she may have punctured something. The next day, area was red and irritated and by , was draining yellow brown drainage and this was concerning to patient. Pt seen in ED and was initially reporting that she was having a panic attack. Pt was expressing anger about not having anything to eat. Pt was able to calm down with support and agreed to admission for ABX and surgical consult. Pt was seen by Dr. Sadler in the ED and wanted pt admitted for ABX for the small retroumbilical abscess. Surgery will folllow daily and will manage dressing. At this time, Dr. Sadler does not think pt needs surgery. Pt figueroa sno leukocytosis, fever, chills, N/V, chest pain and is reporting mild abdominal discomfort. As above US and CT confirm presence of retroumbilical abscess. CRP 6.9, ESR 22. Blood cultures and wound culture are pending. Pt was started on ceftriaxone and flagyl in the ED. Hospital course: Patient was admitted for redness and drainage from her umbilical area. Review of her CAT scan showed soft tissue stranding and maybe a small amounts of fluid. There is no drainable abscess The small fluid collection is already freely draining. Surgery cleaned the umbilicus and applied dry dressings we gauze .There is no surgical intervention indicated at this time. Leukocytosis resolved, patient seems to be improved significantly Pt has OCD, cleans skin excessively with harsh products and brillo. Used Qtip for the first time and may have gone too deep. strongly advised to avoid it. Blood culture and wound cultures pending CRP and ESR elevated, pt has no leukocytosis, fever or chills . Continue dry dressing. plan: Dry dressing Augmentin 875 mg p.o. b.i.d. Follow up with PCP/surgery outpatient Above management discussed with the patient detail length -she understand and in agreement above plan, assessment and plan coordination time spent 45 minute. Time Attestation Total time managing care of this patient today: 45 mintues. Discharge Coordination Time (in mins): 45 min Quality: Safe Use of Opioids Does Pt have an Active Cancer Diagnosis on the Problem List?: No Quality: Stroke Does the patient have a stroke diagnosis?: No Physical Exam Exam: Exam: Appearance: Alert.? Oriented X3. cvs: rrr, [id number] , no murmur res: clear to auscultation ,no rhonchii or wheezing abd: no rebound or guarding ,nt, bs present. ext pulses present , no cyanosis . skin:Redness around the umbilicus much improved, induration, no fluctuance, scanty drainage neuro: axo3 , nonfocal. Vital Signs: Vital Signs: Last Vital Signs Temp 97.2 F 07/30/25 08:27 Pulse 76 07/30/25 08:27 Resp 18 07/30/25 08:27 BP 125/64 07/30/25 08:27 Pulse Ox 97 07/30/25 08:27 O2 Del Method Room Air 07/30/25 08:27 BMI result Body Mass Index 35.0 DS: Data Data Completed and Pending Labs on day of discharge: Laboratory Results - last 24 hr 07/29/25 07/30/25 16:09 02:51 WBC 8.7 7.9 RBC 4.15 L 3.71 L Hgb 13.9 12.4 Hct 41.0 36.7 L MCV 98.8 H 98.9 H MCH 33.5 H 33.4 H MCHC 33.9 33.8 RDW 11.4 11.5 Plt Count 343 286 MPV 9.9 10.3 Immature Gran % (Auto) 0.3 0.3 Neut % (Auto) 49.6 41.6 L Lymph % (Auto) 37.8 44.5 H [place] % (Auto) 10.8 12.0 H Eos % (Auto) 0.8 0.8 Baso % (Auto) 0.7 0.8 Lymph # (Auto) 3.3 3.5 [place] # (Auto) 0.9 0.9 Eos # (Auto) 0.1 0.1 Baso # (Auto) 0.1 0.1 Abs Immat Gran (auto) 0.03 0.02 Absolute Neuts (auto) 4.3 3.3 Absolute Nucleated RBC 0.000 0.000 Nucleated RBC % (auto) 0.0 0.0 ESR 22 H Sodium 138 140 Potassium 4.7 3.6 D Chloride 103 105 Carbon Dioxide 26 25 Anion Gap 14 14 BUN 7 L 7 L Creatinine 0.64 0.59 Estim Creat Clear Calc 123.0 133.5 Estimated GFR > 60 > 60 Random Glucose 94 109 Calcium 9.6 8.8 D Magnesium 2.1 Total Bilirubin 0.4 AST 38 H ALT 21 Alkaline Phosphatase 93 C-Reactive Protein 6.90 H Total Protein 7.7 Albumin 4.6 Preliminary micro results at discharge 07/29/25 17:47 Routine Culture - Preliminary Abdomen - Abdominal Culture in progress. Imaging CT scan - abdomen: My impression: ct abd: There is an inflammatory process within the retro umbilical region likely associated with a small abscess as noted on recent ultrasound. Discharge Plan Discharge Anticipated Discharge Date/Time: 07/30/25 14:40 Patient Disposition: Home, Self-Care Discharge Diagnosis: abd wall cellulitis Referrals: Scarlett Padron MD [Primary Care Provider, Internal Medicine] - 1 Week Discharge Medications: New amoxicillin-pot clavulanate 875-125 mg Tablet 1 tab PO Q12H Qty: 19 0RF doxycycline monohydrate 100 mg Capsule 100 mg PO Q12H Qty: 19 0RF Continued clonazepam 0.5 mg tablet 0.5 mg PO BEDTIME valacyclovir 500 mg tablet 500 mg PO DAILY pantoprazole 40 mg tablet,delayed release (DR/EC) 40 mg PO DAILY@0630 trazodone 150 mg tablet 150 mg PO BEDTIME PRN (Reason: Insomnia) oxcarbazepine 600 mg tablet 600 mg PO BEDTIME Triumeq 600-50-300 mg tablet 1 tab PO DAILY multivitamin Tablet 1 tab PO DAILY Discharge Orders: Discharge Order (Routine); Ordered 07/30/25 Ordered By: Venancio Ortiz Diet: Advance to usual diet Activity on Discharge: As tolerated Stand Alone Forms: Patient Portal Discharge page Print Language: Kazakh Care Plan Goals: as below. Health Concerns: Doxycycline 100 mg p.o. b.i.d. for 10 days. Augmentin 875 mg p.o. b.i.d. for 10 days. Any new symptoms or worsening of cellulitis please go to nearest emergency room for medical management. Plan of Treatment: As above. Assessment: As above. Patient Instructions: Doxycycline (By mouth) (Acticlate, Adoxa, Avidoxy, Monodox, Doryx), Amoxicillin/Clavulanate Potassium (By mouth) (Augmentin, Augmentin...
[2025-07-30 15:38] VITALS: BP 123/70; PULSE 58; RESP 18; TEMP 36.4; O2SAT 100
[2025-07-30 17:30] VITALS: BP 121/66; PULSE 72; RESP 18; TEMP 36.1; O2SAT 98
== END 2025-07-30 17:37 | disposition home or self-care (01) | DRG 603 ==
LOC: HO.ED 20:27 → HO.EDOVER 20:41 → HO.S3 07-30 07:29
PROVIDERS: Physician Assistant Medical; Admitting Provider Nurse Practitioner Family; Emergency Provider Emergency Medicine Emergency Medical Services; PCP Internal Medicine; Visit Provider Internal Medicine
DX: L03.311 Cellulitis of abdominal wall (principal); F42.9 Obsessive-compulsive disorder, unspecified; Z21 Asymptomatic human immunodeficiency virus [HIV] infection status; B00.9 Herpesviral infection, unspecified; F17.210 Nicotine dependence, cigarettes, uncomplicated; Z71.6 Tobacco abuse counseling; Z98.84 Bariatric surgery status; Z79.899 Other long term (current) drug therapy
CPT/HCPCS: 36415; 74177; 76705; 80048; 80053; 83735; 85025; 85652; 86140; 87040; 87070; 87077; 87186; 87205; 99285; J0692; J0696; J1650; J1836; Q9967

== ENCOUNTER → 2025-07-29 16:48 | Outpatient (BNV) | payer OTHER, SELFPAY | PROVIDERS: Emergency Provider Emergency Medicine Emergency Medical Services; PCP Internal Medicine; Visit Provider Radiology Diagnostic Radiology | DX: L02.216 Cutaneous abscess of umbilicus (principal); L08.82 Omphalitis not of newborn | CPT/HCPCS: 74177; 76705 ==

== ENCOUNTER → 2025-07-29 20:30 | Outpatient (BNV) | payer OTHER, SELFPAY | PROVIDERS: Admitting Provider Nurse Practitioner Family; Emergency Provider Emergency Medicine Emergency Medical Services; PCP Internal Medicine; Visit Provider Internal Medicine | DX: L03.311 Cellulitis of abdominal wall (principal); L02.216 Cutaneous abscess of umbilicus | CPT/HCPCS: 99222; 99239 ==

== ENCOUNTER → 2025-07-29 20:30 | Outpatient (BNV) | payer OTHER, SELFPAY | PROVIDERS: Admitting Provider Nurse Practitioner Family; Emergency Provider Emergency Medicine Emergency Medical Services; PCP Internal Medicine; Visit Provider Surgery | DX: L03.90 Cellulitis, unspecified (principal) | CPT/HCPCS: 99222; 99232 ==